=== PATIENT | female | born 1960 | race Caucasian/White ===

== ENCOUNTER → 2016-11-09 | Outpatient (REF) | payer OTHER | LOC: M LAB REF 13:04 | PROVIDERS: ATTEND Specialist | DX: R87.613 High grade squamous intraepithelial lesion on cytologic smear of cervix (HGSIL) (principal) ==

== ENCOUNTER → 2016-12-07 | Outpatient (CLI) | payer OTHER ==
[2016-12-07 07:03] LABS: BASO % 0.5 % (0.0-1.0); EOS # 0.2 K/mm3 (0.0-0.50); EOS % 2.5 % (0.0-3.0); LARGE UNSTAINED CELL # 0.2 K/mm3 (0.0-0.4); LARGE UNSTAINED CELL % 2.5 % (0.0-4.0); LYMPH # 2.7 K/mm3 (1.5-4.5); LYMPH % 24.7 % (24.0-44.0); MEAN CORPUSCULAR HEMOGLOBIN 30.5 pg (27.0-33.0); MEAN CORPUSCULAR HGB CONC 33.9 g/dl (32.0-36.5); MONO # 0.4 K/mm3 (0.0-0.8); NEUTROPHILS # 6.5 K/mm3 (1.8-7.7); NEUTROPHILS % 65.8 % (36.0-66.0); PLATELET COUNT, AUTOMATED 176 k/mm3 (150-450); RED CELL DISTRIBUTION WIDTH 12.6 % (11.5-14.5); WHITE BLOOD COUNT 9.9 K/mm3 (4.0-10.0)
[2016-12-07 07:24] LABS: ALBUMIN 3.8 GM/DL (3.2-5.2); ALBUMIN/GLOBULIN RATIO 1.27 (1.00-1.93); ALKALINE PHOSPHATASE 119 U/L (45-117); ALT/SGPT 22 U/L (12-78); ANION GAP 5 MEQ/L (8-16); AST/SGOT 11 U/L (15-37); BILIRUBIN,TOTAL 0.3 MG/DL (0.2-1.0); BLOOD UREA NITROGEN 15 MG/DL (7-18); CALCIUM LEVEL 8.7 MG/DL (8.5-10.1); CARBON DIOXIDE LEVEL 29 MEQ/L (21-32); CHLORIDE LEVEL 108 MEQ/L (98-107); CHOLESTEROL LEVEL 178 MG/DL (<200); CREATININE FOR GFR 0.82 MG/DL (0.55-1.02); GLOMERULAR FILTRATION RATE > 60.0 (>51); GLUCOSE, FASTING 85 MG/DL (70-105); POTASSIUM SERUM 4.3 MEQ/L (3.5-5.1); SODIUM LEVEL 142 MEQ/L (136-145); TOTAL PROTEIN 6.8 GM/DL (6.4-8.2); TRIGLYCERIDES LEVEL 134 MG/DL (<150)
== END ==
LOC: M LAB 06:17
PROVIDERS: ATTEND Family Medicine
DX: R74.8 Abnormal levels of other serum enzymes (principal); F17.200 Nicotine dependence, unspecified, uncomplicated; R05 Cough

== ENCOUNTER 2017-01-16 06:05 | Day surgery (SDC) | payer OTHER ==
[~2017-01-16] VITALS: Ht 160 cm; Wt 60.8 kg
[2017-01-16] VITALS (8 sets, daily range): BP systolic 105–140; BP diastolic 51–70
[~2017-01-16 06:05] MED LIST: ASPI1TAB PO; ATOR40TA75 PO; OMEP40CA2 PO; VENL37.52 PO; VITA1CAP7 PO
[2017-01-16] MEDS ORDERED: LR 1,000 ML IV SCH ×3 (06:15→10:00)
[2017-01-16 06:36] LABS: MEAN CORPUSCULAR HEMOGLOBIN 30.7 pg (27.0-33.0); MEAN CORPUSCULAR HGB CONC 34.5 g/dl (32.0-36.5); MEAN CORPUSCULAR VOLUME 88.9 fl (80.0-96.0); RED CELL DISTRIBUTION WIDTH 13.1 % (11.5-14.5); WHITE BLOOD COUNT 7.9 K/mm3 (4.0-10.0)
[2017-01-16] MEDS ORDERED: fentaNYL 250 MCG/5 ML INJECTION (J3010) As Ordered ONE (06:46)
[2017-01-16] MEDS ORDERED: MIDAZOLAM INJ 2 MG/2 ML VIAL (J2250) As Ordered ONE (06:46)
[2017-01-16] MEDS ORDERED: HYDROmorphone HCL 2 MG/ML 1ML VIAL (J1170) As Ordered ONE (06:46)
[2017-01-16] MEDS ORDERED: LIDOCAINE 2% INJ 100 MG/5 ML SDV (FOR ANES.) As Ordered ONE (06:47)
[2017-01-16] MEDS ORDERED: ROCURONIUM BROMIDE 50 MG/5 ML VIAL/SYRINGE As Ordered ONE ×2 (06:47→08:45)
[2017-01-16] MEDS ORDERED: PROPOFOL 200 MG/20 ML VIAL As Ordered ONE ×2 (06:47→08:08)
[2017-01-16] MEDS ORDERED: dexameTHASONE 4 MG/ML 1ML VIAL (J1100) As Ordered ONE (06:47)
[2017-01-16] MEDS ORDERED: GLYCOPYRROLATE INJ 0.2 MG/ML 2 ML VIAL As Ordered ONE (06:59)
[2017-01-16] MEDS ORDERED: LR 1,000 ML IV ONE (07:00)
[2017-01-16] MEDS ORDERED: SCOPOLAMINE 1.5 MG TRANSDERMAL As Ordered ONE (07:12)
[2017-01-16] MEDS ORDERED: BUPIVACAINE HCL 0.25% 30 ML VIAL As Ordered ONE (07:14)
[2017-01-16] MEDS ORDERED: SCOPOLAMINE 1.5 MG TRANSDERMAL TOP ONE (07:15)
[2017-01-16] MEDS ORDERED: METHYLENE BLUE 0.5% (5MG/ML) 10 ML AMP (PROVAYBLUE)(Q9968 PER 1MG) As Ordered ONE (07:15)
[2017-01-16] MEDS ORDERED: ceFAZolin SOD 1 GM in D5W MINI-BAG PLUS 50 ML IV ONE (07:30)
[2017-01-16] MEDS ORDERED: ONDANSETRON 4MG/2ML VIAL (J2405) As Ordered ONE (08:13)
[2017-01-16] MEDS ORDERED: KETOROLAC 60 MG/2 ML VIAL (J1885) As Ordered ONE (08:13)
[2017-01-16] MEDS ORDERED: DOCUSATE SODIUM 100 MG CAP PO SCH (09:00)
[2017-01-16] MEDS ORDERED: HYDROmorphone HCL 1 MG/ML SYRINGE (J1170) IV PRN (10:00)
[2017-01-16] MEDS ORDERED: KETOROLAC 30 MG/ML VIAL (J1885) IV PRN (10:00)
[2017-01-16] MEDS ORDERED: MORPHINE 4 MG/ML 1ML SYRINGE IV PRN (10:00)
[2017-01-16] MEDS ORDERED: fentaNYL 100 MCG/2 ML INJECTION (J3010) IV PRN (10:00)
[2017-01-16] MEDS ORDERED: ONDANSETRON 4MG/2ML VIAL (J2405) IV PRN ×2 (10:00)
[2017-01-16] MEDS ORDERED: PERCOCET 5MG/325MG TAB PO PRN ×3 (10:00)
[2017-01-16] MEDS ORDERED: PERC5TAB12 PO (10:56)
--- NOTE | 2017-01-17 07:49 | RO ---
DATE OF PROCEDURE: 01/16/2017 PREPROCEDURE DIAGNOSIS: High grade cervical dysplasia. POSTPROCEDURE DIAGNOSIS: High grade cervical dysplasia. PROCEDURE: Robotic-assisted laparoscopic hysterectomy and bilateral salpingo-oophorectomy, cystoscopy. SURGEON: Dr. Demar Santana. CORRUGATED FASTENER DRIVER: ANESTHESIA: General endotracheal. ESTIMATED BLOOD LOSS: 50 mL. FINDINGS: Small uterus. Normal fallopian tubes and ovaries. Normal upper abdomen including liver, gallbladder, stomach. OPERATIVE SUMMARY: The patient was taken to the operating room where general endotracheal anesthesia was induced. She was prepped and draped in a sterile fashion in dorsal lithotomy position. Ackerman catheter was placed. A [employer] uterine manipulator was placed. Periumbilical incision was made with a scalpel. Veress needle was placed through this incision while tenting up on the skin of the abdomen. Intra-abdominal creation of the Veress needle was assessed with the use of a saline filled syringe. Pneumoperitoneum was created. The Veress needle was removed. An 11 mm trocar was placed directly through this incision while tenting up on the skin of the abdomen using Visiport. Three 8 mm suprapubic ports were placed under direct visualization without difficulty. Patient was placed in Trendelenburg position. The [employer] surgical robot was docked to the ports. Using Monopolar Endoshears and a bipolar PK device, the IP ligaments were coagulated and incised. Broad ligament attachments to the ovary were coagulated and incised. The round ligaments were coagulated and incised. The anterior and posterior leaves of the broad ligament were . A bladder flap was created. The uterine vessels were coagulated and incised. Monopolar Endoshears were used to create a pulpotomy in the upper vagina at the level of the VCare cup. This extended 360 degrees around the upper vagina. Specimen containing uterus, cervix, fallopian tubes and ovaries was removed through the vagina. The vaginal cuff was closed with #1 V-Loc suture in a running fashion. The pelvis was irrigated. The patient received Methylene Blue dye intravenously. Cystoscopy was performed using a 70 degree cystoscope. Bilateral ureteral jets were identified and there was no evidence of injury to the bladder. Sil Galvan NP, assisted with all aspects of the procedure from beginning to end. She positioned the patient initially, helped with incision of the ports and docking of the robot. She manipulated the uterus throughout the procedure and removed the uterus at the end of the procedure. She assisted with removal of the ports and closure of the abdominal incisions. All ports were removed. The fascia of umbilicus was closed with interrupted suture of #2-0 Vicryl. Skin was closed with #4-0 Monocryl subcutaneous sutures. Sponge, instrument and needle counts were correct.
== END 2017-01-16 17:25 | disposition home or self-care (01) ==
LOC: M SDC 06:05 → M PED 11:07 → M SDC 17:25
PROVIDERS: ATTEND Specialist
DX: D06.9 Carcinoma in situ of cervix, unspecified (principal); E78.00 Pure hypercholesterolemia, unspecified; E55.9 Vitamin D deficiency, unspecified; R94.31 Abnormal electrocardiogram [ECG] [EKG]; K21.9 Gastro-esophageal reflux disease without esophagitis; N72 Inflammatory disease of cervix uteri; D25.9 Leiomyoma of uterus, unspecified; Z79.899 Other long term (current) drug therapy; Z79.82 Long term (current) use of aspirin; Z78.0 Asymptomatic menopausal state; Z72.0 Tobacco use
CPT/HCPCS: 36415; 58571; 85027; 88307; J0690; J1100; J1170; J1885; J2250; J2405; J3010; Q9968

== ENCOUNTER → 2018-02-19 | Outpatient (CLI) | payer OTHER | LOC: M RAD 12:25 | DX: R91.8 Other nonspecific abnormal finding of lung field (principal) | CPT/HCPCS: 71250 ==

== ENCOUNTER → 2018-03-05 | Outpatient (CLI) | payer OTHER | LOC: M RAD 13:18 | DX: I65.23 Occlusion and stenosis of bilateral carotid arteries (principal) | CPT/HCPCS: 93880 ==

== ENCOUNTER → 2018-07-16 | Outpatient (REF) | payer OTHER ==
[~2018-07-16] MED LIST changes: +PERC5TAB12 PO
[2018-07-16 14:24] LABS: BLOOD UREA NITROGEN 18 MG/DL (7-18); CALCIUM LEVEL 8.7 MG/DL (8.8-10.2); CARBON DIOXIDE LEVEL 28 MEQ/L (21-32); CHLORIDE LEVEL 106 MEQ/L (98-107); CHOLESTEROL LEVEL 199 MG/DL (<200); CHOLESTEROL RISK RATIO 4.522 (<5); CREATININE FOR GFR 0.87 MG/DL (0.55-1.30); GLOMERULAR FILTRATION RATE > 60.0 (>45); GLUCOSE, FASTING 91 MG/DL (70-100); HDL CHOLESTEROL 44 MG/DL (>40); LDL CHOLESTEROL 125 MG/DL (<100); NON-HDL-C 155 MG/DL; POTASSIUM SERUM 4.6 MEQ/L (3.5-5.1); SODIUM LEVEL 138 MEQ/L (136-145); TRIGLYCERIDES LEVEL 152 MG/DL (<150)
[2018-07-16 14:29] LABS: BASO # 0.1 10^3/uL (0.0-0.2); BASO % 0.6 % (0.0-1.0); EOS # 0.1 10^3/uL (0.0-0.50); EOS % 1.7 % (0.0-3.0); HEMATOCRIT 41.4 % (36.0-47.0); HEMOGLOBIN 13.8 g/dl (12.0-15.5); LYMPH # 2.9 10^3/uL (1.5-4.5); LYMPH % 36.9 % (24.0-44.0); MEAN CORPUSCULAR HGB CONC 33.3 g/dl (32.0-36.5); MONO # 0.5 10^3/uL (0.0-0.8); MONO % 6.4 % (0.0-5.0); NEUTROPHILS # 4.2 10^3/uL (1.8-7.7); NEUTROPHILS % 54.1 % (36.0-66.0); PLATELET COUNT, AUTOMATED 188 10^3/uL (150-450); WHITE BLOOD COUNT 7.8 10^3/uL (4.0-10.0)
[2018-07-16 14:51] LABS: HEMOGLOBIN A1c 5.5 %
== END ==
LOC: M SFHCPLAZ 11:28
PROVIDERS: ATTEND Family Medicine
DX: Z13.1 Encounter for screening for diabetes mellitus (principal); R91.1 Solitary pulmonary nodule; E78.2 Mixed hyperlipidemia

== ENCOUNTER → 2018-10-17 | Outpatient (CLI) | payer OTHER ==
[~2018-10-17] MED LIST changes: -ASPI1TAB PO; +ASPI81TA26 PO; +D-3-50003 PO; -VITA1CAP7 PO
--- NOTE | 2018-10-18 03:04 | REP ---
Clinical: Abnormal lung findings . Comparison: 05/14/2015 . Technique: PA and lateral. Findings: The mediastinum and cardiac silhouette are normal. The lung osorio are clear and without acute consolidation, effusion, or pneumothorax. The skeletal structures are intact and normal. Impression: 1. No acute cardiopulmonary process. Electronically Signed by Maurice Dimas MD 10/18/2018 02:55 A
== END ==
LOC: M RAD 11:32
PROVIDERS: ATTEND Internal Medicine Pulmonary Disease
DX: R91.8 Other nonspecific abnormal finding of lung field (principal)

== ENCOUNTER → 2019-03-05 | Outpatient (CLI) | payer OTHER ==
--- NOTE | 2019-03-05 11:29 | REP ---
Low-dose lung screening chest CT: The study is performed without IV contrast. The images are presented at lung windowing only per Comparisons are the low-dose lung screening CT dated 11/27/[address] without IV contrast dated 02/19/2018. There is a 6 ml lung nodule adjacent to the right major fissure on image 68, unchanged from both prior studies. There are calcified granulomas in the right hilus and calcified granulomas in the right lobe, unchanged from both prior studies per On the 02/19/2018 study there were two 2 mm lung nodules in the left upper lobe. These were not visible on 11/27/2017 and are not visible on the study today. There are no infiltrates. There are no pleural effusions. Impression: The 6 mm lung nodule adjacent to the right major fissure is unchanged, therefore, is a category II lung nodule with probability of malignancy less than 1%. Depending on risk factors consider annual follow-up low-dose lung screening CT. Electronically Signed by Bipin Chadwick MD 03/05/2019 11:21 A
== END ==
LOC: M RAD 10:24
PROVIDERS: ATTEND Internal Medicine Pulmonary Disease
DX: Z12.2 Encounter for screening for malignant neoplasm of respiratory organs (principal); F17.218 Nicotine dependence, cigarettes, with other nicotine-induced disorders; J84.10 Pulmonary fibrosis, unspecified; R91.1 Solitary pulmonary nodule

== ENCOUNTER → 2019-05-17 | Outpatient (REF) | payer OTHER ==
[~2019-05-17] MED LIST changes: -OMEP40CA2 PO; +OMEP40CA97 PO
[2019-05-17 12:08] LABS: ALBUMIN 4.1 GM/DL (3.2-5.2); ALT/SGPT 22 U/L (12-78); BILIRUBIN,TOTAL 0.4 MG/DL (0.2-1.0); BLOOD UREA NITROGEN 15 MG/DL (7-18); CARBON DIOXIDE LEVEL 29 MEQ/L (21-32); CHLORIDE LEVEL 105 MEQ/L (98-107); CHOLESTEROL LEVEL 248 MG/DL (<200); CREATININE FOR GFR 0.86 MG/DL (0.55-1.30); FREE T4 1.26 NG/DL (0.76-1.46); GLOMERULAR FILTRATION RATE > 60.0 (>45); GLUCOSE, FASTING 74 MG/DL (70-100); HDL CHOLESTEROL 40 MG/DL (>40); LDL CHOLESTEROL 174 MG/DL (<100); NON-HDL-C 208 MG/DL; POTASSIUM SERUM 4.4 MEQ/L (3.5-5.1); SODIUM LEVEL 140 MEQ/L (136-145); THYROID STIMULATING HORMONE 0.664 uIU/ML (0.358-3.740); TOTAL PROTEIN 7.1 GM/DL (6.4-8.2); TRIGLYCERIDES LEVEL 171 MG/DL (<150)
== END ==
LOC: M SFHCPLAZ 09:40
PROVIDERS: ATTEND Physician Assistant
DX: F17.200 Nicotine dependence, unspecified, uncomplicated (principal); E78.2 Mixed hyperlipidemia; Z90.09 Acquired absence of other part of head and neck

== ENCOUNTER → 2020-03-17 | Outpatient (CLI) | payer OTHER ==
--- NOTE | 2020-03-23 15:20 | REP ---
CT CHEST WITHOUT CONTRAST: LOW DOSE SCREENING EXAM HISTORY: Nicotine dependence. COMPARISON: Chest CT studies are reviewed, the most remote of which is from November 27, 2018. The most recent is 03/05/2019. CT FINDINGS: Digital preliminary locomotive boilermaker radiograph is unremarkable. There is no evidence of infiltrate or mass lesion. A granulomatous densely calcified nodule is present in the right lower lobe, unchanged from prior studies. There are granulomatous lymph node calcifications in the subcarinal and right hilar and right precarinal region unchanged. Vascular calcifications again noted. The previously noted perifissural nodule in the right lung adjacent to the major fissure in the middle lobe is again seen unchanged, 6 mm in size, stable for over two years. This is considered benign. There is a tiny 3 mm stable nodule in the right lung apex on page 15 of 99 in todays study. This is also unchanged since November 27, 2017. There is a tiny stable 2-3 mm nodule in the left lower lobe on page 59 unchanged from November 27, 2017, and February 19, 2018. No new pulmonary nodule or mass lesion is observed. Question bronchiectasis in the upper and lower lobes. Study is otherwise unremarkable. IMPRESSION: Lung-RADS category 2 findings. Repeat screening study suggested in one year. MTDD
== END ==
LOC: M RAD 09:35
PROVIDERS: ATTEND Internal Medicine Pulmonary Disease
DX: F17.218 Nicotine dependence, cigarettes, with other nicotine-induced disorders (principal); R91.1 Solitary pulmonary nodule

== ENCOUNTER → 2020-06-02 | Outpatient (REF) | payer OTHER ==
[2020-06-02 11:15] LABS: HEMATOCRIT 43.6 % (36.0-47.0); HEMOGLOBIN 14.3 g/dl (12.0-15.5); MEAN CORPUSCULAR HEMOGLOBIN 30.5 pg (27.0-33.0); MEAN CORPUSCULAR HGB CONC 32.8 g/dl (32.0-36.5); PLATELET COUNT, AUTOMATED 172 10^3/uL (150-450); RED BLOOD COUNT 4.69 10^6/uL (4.00-5.40); WHITE BLOOD COUNT 7.3 10^3/uL (4.0-10.0)
[2020-06-02 12:03] LABS: ALBUMIN 4.1 GM/DL (3.2-5.2); ALT/SGPT 25 U/L (12-78); BILIRUBIN,TOTAL 0.3 MG/DL (0.2-1.0); BLOOD UREA NITROGEN 19 MG/DL (7-18); CALCIUM LEVEL 8.6 MG/DL (8.8-10.2); CARBON DIOXIDE LEVEL 30 MEQ/L (21-32); CHLORIDE LEVEL 106 MEQ/L (98-107); CHOLESTEROL LEVEL 188 MG/DL (<200); CREATININE FOR GFR 0.92 MG/DL (0.55-1.30); GLOMERULAR FILTRATION RATE > 60.0 (>45); GLUCOSE, FASTING 83 MG/DL (70-100); HDL CHOLESTEROL 47 MG/DL (>40); LDL CHOLESTEROL 113 MG/DL (<100); NON-HDL-C 141 MG/DL; POTASSIUM SERUM 4.2 MEQ/L (3.5-5.1); SODIUM LEVEL 139 MEQ/L (136-145); TOTAL PROTEIN 7.4 GM/DL (6.4-8.2); TRIGLYCERIDES LEVEL 141 MG/DL (<150)
== END ==
LOC: M SFHCPLAZ 08:34
PROVIDERS: ATTEND Physician Assistant
DX: E78.2 Mixed hyperlipidemia (principal); F17.210 Nicotine dependence, cigarettes, uncomplicated

== ENCOUNTER → 2020-11-27 | Outpatient (CLI) | payer OTHER ==
[~2020-11-27] MED LIST changes: +OMEP40CA4 PO; -OMEP40CA97 PO
--- NOTE | 2020-11-27 11:50 | REP ---
INDICATION: DYSPHAGIA, DYSPHONIA, DIS OF UPPER RESPIRATORY TRA. COMPARISON: None. TECHNIQUE: Real-time sonographic evaluation of thyroid performed. FINDINGS: Reportedly the patient has had a left thyroidectomy approximately 27 years ago. No residual thyroid tissue is seen to the left of midline. The right lobe of the thyroid measures 5.9 x 3.1 x 2.0 cm with diffuse heterogeneous echotexture. In the mid right lobe there is a heterogeneous solid nodule 7 mm in diameter and another 8 mm in maximum diameter. In the right lower pole medially a complex nodule contains tiny cystic components and measures 4 x 2 x 5 mm. More laterally, a heterogeneous solid nodule measures 1.1 x 0.7 x 0.9 cm. IMPRESSION: Heterogeneous echotexture of the right lobe of the thyroid, with 4 nodules identified. According to TI-RADS criteria, these are not suspicious. No residual left thyroid tissue is visualized status post thyroidectomy. <Electronically signed by Bipin Angeles > 11/27/20 [id number]
== END ==
LOC: M RAD 07:29
PROVIDERS: ATTEND Internal Medicine Gastroenterology
DX: R13.10 Dysphagia, unspecified (principal); R49.0 Dysphonia; J39.9 Disease of upper respiratory tract, unspecified; E04.2 Nontoxic multinodular goiter

== ENCOUNTER → 2021-04-08 | Outpatient (CLI) | payer OTHER ==
[~2021-04-08] MED LIST changes: +D3 S20002 PO; +NO ITAB PO; +VENL75TA2 PO; +VITA500030 PO
--- NOTE | 2021-04-08 10:00 | REP ---
INDICATION: NICOTINE DEPENDENCE. COMPARISON: Multiple the latest 03/17/2020 also low-dose screening CT of the lungs TECHNIQUE: Axial noncontrast images from the thoracic inlet to the upper abdomen using low-dose lung screening technique (LDCT). As per the protocol only lung window images were sent to the read station for interpretation. FINDINGS: There are 2 right lung nodules and 1 left lung nodule and they are all stable. Note is again made of an incidental calcified granuloma in the right lower lobe. No new abnormal nodules, masses, or opacities have developed. IMPRESSION: Stable lung rads category 2 low-dose screening CT examination of the lungs. According to the revised Fleischner society criteria yearly low-dose screening CT of the lungs is recommended if clinically relevant. <Electronically signed by Mao Jin > 04/08/21 0997
== END ==
LOC: M RAD 08:15
PROVIDERS: ATTEND Internal Medicine Pulmonary Disease
DX: F17.218 Nicotine dependence, cigarettes, with other nicotine-induced disorders (principal); R91.8 Other nonspecific abnormal finding of lung field

== ENCOUNTER → 2021-04-19 | Outpatient (CLI) | payer OTHER | LOC: M LABSMTC 10:15 | PROVIDERS: ATTEND Anesthesiology | DX: Z01.812 Encounter for preprocedural laboratory examination (principal); Z20.822 Contact with and (suspected) exposure to COVID-19 ==

== ENCOUNTER 2021-04-23 12:11 | Day surgery (SDC) | payer OTHER ==
[~2021-04-23] VITALS: Ht 162.6 cm; Wt 63.5 kg
[~2021-04-23 12:11] MED LIST changes: +NS 1,000 ML IV ONE
--- OUTSIDE RECORDS SUMMARY | 2021-04-23 12:14 | CCD | Continuity of Care Document ---
Author Author Clara COLLADO MD Organization Unknown Address [address] [place] [address] Phone [phone] Care Team Providers Care Collector Of Aquarium Specimens Name Role Phone Noah Leanne Cristofer Gusman AUTM [phone] Problems Description No Information Available Social History Type Date Description Comments Sex Unknown ETOH Use Consumes 1 glass of wine per day Recreational Drug Use Denies Drug Use Tobacco Use Start: 06/12/74 Smokes 1/2 Pack A Day 1/2 pack p er day Smoking Status Reviewed: 04/14/21 Smokes 1/2 Pack A Day 1/2 pac k per day Exercise Type/Frequency Exercises regularly Allergies and adverse reactions Active Allergies Criticality Reaction | Severity Comments Date Penicillin Unable to assess criticality Anaphylaxis 10/23/2014 Inactive Allergies NKDA Unable to assess criticality 02/26/2014 Medications Active Medications SIG Qnty Indications Ordering Provide r Date Vitamin D 5000Unit Capsules once a day Unknown Atorvastatin Calcium 40mg Tablets 1 by mouth every night at bedtime Unknown Venlafaxine HCL ER 75mg Caps ER 24 HR 1 by mouth every day Unknown Immunizations Description No Information Available Vital Signs Date Vital Result Comment 04/14/2021 11:16am BP Systolic 128 mmHg BP Diastolic 76 mmHg Heart Rate 68 /min O2 % BldC Oximetry 97 % Height 64 inches 5'4" Weight 146.00 lb BMI (Body Mass Index) 25.1 kg/m2 [place] Body Weight 120 lb Weight 66.226 kg BSA (Body Surface Area) 1.71 m2 03/30/2020 9:21am BP Systolic 130 mmHg BP Diastolic 82 mmHg Heart Rate 102 /min O2 % BldC Oximetry 98 % Room Air Height 64 inches 5'4" Weight 143.00 lb BMI (Body Mass Index) 24.5 kg/m2 [place] Body Weight 120 lb Weight 64.865 kg BSA (Body Surface Area) 1.70 m2 Results Description No Information Available Procedures Description No Information Available Medical Devices Description No Information Available Encounters Description No Information Available Assessments Date Code Description Provider 04/14/2021 R91.8 Other nonspecific abnormal findi ng of lung field Waldo Collado MD 04/14/2021 F17.218 Nicotine dependence, cigarettes, with other nicotine-induced Waldo Collado MD Plan of Treatment Future Appointment(s):* 04/21/2022 8:30 am - Waldo Collado MD at [facility] Pulmonary/Thoracic 04/14/2021 - Waldo Collado MD* R91.8 Other nonspecific abnormal finding of lung field * F17.218 Nicotine dependence, cigarettes, with other nicotine-induced * * Follow up:* 12 months with LDCT Functional Status Description No Information Available Mental Status Mental Condition Comment Date Status None Active Can understand information Activ e Referrals Description No Information Available
--- OUTSIDE RECORDS SUMMARY | 2021-04-23 12:14 | CCD | Continuity of Care Document ---
Author Author Clara COLLADO MD Organization Unknown Address [address] [place] [address] Phone [phone] Care Team Providers Care Partner Marketing Manager Name Role Phone Noah Leanne Cristofer Gusman AUTM [phone] Problems Description No Information Available Social History [...] lb BMI (Body Mass Index) 25.1 kg/m2 [place] Body Weight 120 lb Weight 66.226 kg BSA (Body Surface Area) 1.71 m2 03/30/2020 9:21am BP Systolic 130 mmHg BP Diastolic 82 mmHg Heart Rate 102 /min O2 % BldC Oximetry 98 % Room Air Height 64 inches 5'4" Weight 143.00 lb BMI (Body Mass Index) 24.5 kg/m2 [place] Body Weight 120 lb Weight 64.865 kg [...] 8:30 am - Waldo Collado MD at [facility] Pulmonary/Thoracic 04/14/2021 - Waldo Collado MD* R91.8 Other nonspecific abnormal finding of lung field * F17.218 Nicotine dependence, cigarettes, with other nicotine-induced * * Follow up:* 12 months with LDCT Functional Status Description No Information Available Mental Status Mental Condition Comment Date Status None Active Can understand information Activ e Referrals Description No Information Available
--- OUTSIDE RECORDS SUMMARY | 2021-04-23 12:14 | CCD | Continuity of Care Document ---
Author Author Clara COLLADO MD Organization Unknown Address [address] [place] [address] Phone [phone] Care Team Providers Care Mat Weaver Name Role Phone Noah Leanne Cristofer Gusman AUTM [phone] Problems Description No Information Available Social History [...] lb BMI (Body Mass Index) 25.1 kg/m2 [place] Body Weight 120 lb Weight 66.226 kg BSA (Body Surface Area) 1.71 m2 03/30/2020 9:21am BP Systolic 130 mmHg BP Diastolic 82 mmHg Heart Rate 102 /min O2 % BldC Oximetry 98 % Room Air Height 64 inches 5'4" Weight 143.00 lb BMI (Body Mass Index) 24.5 kg/m2 [place] Body Weight 120 lb Weight 64.865 kg [...] 8:30 am - Waldo Collado MD at [facility] Pulmonary/Thoracic 04/14/2021 - Waldo Collado MD* R91.8 Other nonspecific abnormal finding of lung field * F17.218 Nicotine dependence, cigarettes, with other nicotine-induced * * Follow up:* 12 months with LDCT Functional Status Description No Information Available Mental Status Mental Condition Comment Date Status None Active Can understand information Activ e Referrals Description No Information Available
--- OUTSIDE RECORDS SUMMARY | 2021-04-23 12:14 | CCD | Continuity of Care Document ---
Author Author Clara COLLADO MD Organization Unknown Address [address] [place] [address] Phone [phone] Care Team Providers Care Fire Extinguisher Sprinkler Inspector Name Role Phone Noah Leanne Cristofer Gusman AUTM [phone] Problems Description No Information Available Social History [...] lb BMI (Body Mass Index) 25.1 kg/m2 [place] Body Weight 120 lb Weight 66.226 kg BSA (Body Surface Area) 1.71 m2 03/30/2020 9:21am BP Systolic 130 mmHg BP Diastolic 82 mmHg Heart Rate 102 /min O2 % BldC Oximetry 98 % Room Air Height 64 inches 5'4" Weight 143.00 lb BMI (Body Mass Index) 24.5 kg/m2 [place] Body Weight 120 lb Weight 64.865 kg [...] 8:30 am - Waldo Collado MD at [facility] Pulmonary/Thoracic 04/14/2021 - Waldo Collado MD* R91.8 Other nonspecific abnormal finding of lung field * F17.218 Nicotine dependence, cigarettes, with other nicotine-induced * * Follow up:* 12 months with LDCT Functional Status Description No Information Available Mental Status Mental Condition Comment Date Status None Active Can understand information Activ e Referrals Description No Information Available
--- OUTSIDE RECORDS SUMMARY | 2021-04-23 12:14 | CCD | Continuity of Care Document ---
Author Author Clara COLLADO MD Organization Unknown Address [address] [place] [address] Phone [phone] Care Team Providers Care Raw Stock Drier Tender Name Role Phone Noah Leanne Cristofer Gusman AUTM [phone] Problems Description No Information Available Social History [...] lb BMI (Body Mass Index) 25.1 kg/m2 [place] Body Weight 120 lb Weight 66.226 kg BSA (Body Surface Area) 1.71 m2 03/30/2020 9:21am BP Systolic 130 mmHg BP Diastolic 82 mmHg Heart Rate 102 /min O2 % BldC Oximetry 98 % Room Air Height 64 inches 5'4" Weight 143.00 lb BMI (Body Mass Index) 24.5 kg/m2 [place] Body Weight 120 lb Weight 64.865 kg [...] 8:30 am - Waldo Collado MD at [facility] Pulmonary/Thoracic 04/14/2021 - Waldo Collado MD* R91.8 Other nonspecific abnormal finding of lung field * F17.218 Nicotine dependence, cigarettes, with other nicotine-induced * * Follow up:* 12 months with LDCT Functional Status Description No Information Available Mental Status Mental Condition Comment Date Status None Active Can understand information Activ e Referrals Description No Information Available
--- OUTSIDE RECORDS SUMMARY | 2021-04-23 12:14 | CCD | Continuity of Care Document ---
Author Author Clara COLLADO MD Organization Unknown Address [address] [place] [address] Phone [phone] Care Team Providers Care Reinstatement Clerk Name Role Phone Noah Leanne Cristofer Gusman AUTM [phone] Problems Description No Information Available Social History [...] lb BMI (Body Mass Index) 25.1 kg/m2 [place] Body Weight 120 lb Weight 66.226 kg BSA (Body Surface Area) 1.71 m2 03/30/2020 9:21am BP Systolic 130 mmHg BP Diastolic 82 mmHg Heart Rate 102 /min O2 % BldC Oximetry 98 % Room Air Height 64 inches 5'4" Weight 143.00 lb BMI (Body Mass Index) 24.5 kg/m2 [place] Body Weight 120 lb Weight 64.865 kg BSA (Body Surface Area) 1.70 m2 Results Description No Information Available Procedures Date Code Description Status 04/14/2021 51657 Office/Outpatient Established Lo w MDM 20-29 Min Completed Medical Devices Description No Information Available Encounters Type Date Location Provider Dx Diagnosis Office Visit 04/14/2021 11:30a [facility] Pulmonary/Thoracic Lawrenc kelley Collado MD R91.8 Other nonspecific abnormal finding of dante ng field F17.218 Nicotine dependence, cigaret rober, w oth disorders Assessments Date Code Description Provider 04/14/2021 R91.8 Other nonspecific abnormal findi ng of lung field Waldo Collado MD 04/14/2021 F17.218 Nicotine dependence, cigarettes, with other nicotine-induced Waldo Collado MD Plan of Treatment Future Appointment(s):* 04/21/2022 8:30 am - Waldo Collado MD at [facility] Pulmonary/Thoracic 04/14/2021 - Waldo Collado MD* R91.8 Other nonspecific abnormal finding of lung field * F17.218 Nicotine dependence, cigarettes, with other nicotine-induced * * Comments:* ~ At this point, we again discussed smoking cessation, but I am not at all optimistic.~ She should have a low-dose CT scan in a year, and I will make those arrangements, and see her in return at that time. ~ If she gets a new primary care provider, she will let us know. * Follow up:* 12 months with LDCT Functional Status Description No Information Available Mental Status Mental Condition Comment Date Status None Active Can understand information Activ e Referrals Description No Information Available
--- OUTSIDE RECORDS SUMMARY | 2021-04-23 12:15 | CCD ---
Author Author [facility] Organization [facility] Address Unknown Phone Unavailable Care Team Providers Care Salesperson [employer] Name Role Phone Manuelito Collado MD Unavailable Unavailable Manuelito Collado MD Unavailable Unavailable Manuelito Collado MD Unavailable Unavailable Manuelito Collado MD Unavailable Unavailable Manuelito Collado MD Unavailable Unavailable Manuelito Collado MD Unavailable Unavailable Manuelito Collado MD Unavailable Unavailable Manuelito Collado MD Unavailable Unavailable Manuelito Collado MD Unavailable Unavailable Manuelito Collado MD Unavailable Unavailable Manuelito Collado MD Unavailable Unavailable Manuelito Collado MD Unavailable Unavailable Manuelito Collado MD Unavailable Unavailable Manuelito Collado MD Unavailable Unavailable Manuelito Collado MD Unavailable Unavailable Manuelito Collado MD Unavailable Unavailable Manuelito Collado MD Unavailable Unavailable Manuelito Collado MD Unavailable Unavailable Manuelito Collado MD Unavailable Unavailable Manuelito Collado MD Unavailable Unavailable Manuelito Collado MD Unavailable Unavailable Manuelito Collado MD Unavailable Unavailable Manuelito Collado MD Unavailable Unavailable Manuelito Collado MD Unavailable Unavailable Manuelito Collado MD Unavailable Unavailable Manuelito Collado MD Unavailable Unavailable Manuelito Collado MD Unavailable Unavailable Manuelito Collado MD Unavailable Unavailable Manuelito Collado MD Unavailable Unavailable Manuelito Collado MD Unavailable Unavailable Manuelito Collado MD Unavailable Unavailable Manuelito Collado MD Unavailable Unavailable Manuelito Collado MD Unavailable Unavailable Manuelito Collado MD Unavailable Unavailable Manuelito Collado MD Unavailable Unavailable Manuelito Collado MD Unavailable Unavailable Collado, Manuelito Haas MD Unavailable Unavailable Collado, Manuelito Haas MD Unavailable Unavailable Collado, Manuelito Haas MD Unavailable Unavailable Collado, Manuelito Haas MD Unavailable Unavailable Collado, Manuelito Haas MD Unavailable Unavailable Collado, Manuelito Haas MD Unavailable Unavailable Collado, Manuelito Haas MD Unavailable Unavailable Collado, Manuelito Waldo MD Unavailable Unavailable Collado, Manuelito Waldo MD Unavailable Unavailable Collado, Manuelito Waldo MD Unavailable Unavailable Collado, Manuelito Waldo MD Unavailable Unavailable Collado, Manuelito Haas MD Unavailable Unavailable Collado, Manuelito Haas MD Unavailable Unavailable Collado, Manuelito Haas MD Unavailable Unavailable Collado, Manuelito Haas MD Unavailable Unavailable Collado, Manuelito Haas MD Unavailable Unavailable Collado, Manuelito Haas MD Unavailable Unavailable Collado, Manuelito Haas MD Unavailable Unavailable Re-disclosure Warning The records that you are about to access may contain information from federally-assisted alcohol or drug abuse programs. If such information is present, then the following federally mandated warning applies: This information has been disclosed to you from records protected by federal confidentiality rules (42 CFR part 2). The federal rules prohibit you from making any further disclosure of this information unless further disclosure is expressly permitted by the written consent of the person to whom it pertains or as otherwise permitted by 42 CFR part 2. A general authorization for the release of medical or other information is NOT sufficient for this purpose. The Federal rules restrict any use of the information to criminally investigate or prosecute any alcohol or drug abuse patient.The records that you are about to access may contain highly sensitive health information, the redisclosure of which is protected by Article 27-F of the [facility] Public Health law. If you continue you may have access to information: Regarding HIV / AIDS; Provided by facilities licensed or operated by the [facility] Office of Mental Health; or Provided by the [facility] Office for People With Developmental Disabilities. If such information is present, then the following [facility] mandated warning applies: This information has been disclosed to you from confidential records which are protected by state law. State law prohibits you from making any further disclosure of this information without the specific written consent of the person to whom it pertains, or as otherwise permitted by law. Any unauthorized further disclosure in violation of state law may result in a fine or half-way sentence or both. A general authorization for the release of medical or other information is NOT sufficient authorization for further disc losure. Family History Family Member Name Family Member Gender Family Member Status Date o f Status Description Data Source(s) Unknown Unknown Problem MEDENT ([facility], ) Unknown Female Problem [facility] ([facility]) Encounters Encounter Providers Location Date Indications Data Source(s ) Outpatient Attender: Waldo Vivar/Tahmina/Mk cheney 04/14/2021 11:30:00 AM EDT MEDENT ([facility]) [place] [address] [address] 11/19/2020 12:00:00 AM EDT eCW1 ([facility]) [place] [address] [address] 10/26/2020 12:00:00 AM EDT eCW1 ([facility]) Out[place] [address] [address] 06/02/2020 12:00:00 AM EST eCW1 ([facility]) Immunizations Vaccine Date Status Description Data Source(s) COVID-19 VACCINE Pfizer 09/09/2020 12:00:00 AM EDT completed [facility] Vaccine Series Complete: YESThis Data wa s Submitted to [facility] Via [employer]. COVID-19 VACCINE Pfizer 08/19/2020 12:00:00 AM EST completed [facility] Vaccine Series Complete: NOThis Data was Submitted to [facility] Via [employer]. influenza, recombinant, quadrIvalent,injectable, prese rvative free 06/02/2020 07:48:00 AM EST completed eCW1 ([facility]) influenza, recombinant, quadrIvalent,injectable, prese rvative free 06/02/2020 07:48:00 AM EST completed eCW1 ([facility]) influenza, recombinant, quadrIvalent,injectable, prese rvative free 06/02/2020 07:48:00 AM EST completed eCW1 ([facility]) INFLUENZA VIRUS VACCINE QUADRIVALENT (6 MOS AN D UP) 05/05/2020 12:00:00 AM EST completed [facility] Medications Medication Brand Name Start Date Product Form Dose Route Admi nistrative Instructions Pharmacy Instructions Status Indications Reaction Description Data Source(s) 250 mg 02/03/2021 12:00:00 AM EDT tablet 6 TAKE TWO TABLETS BY MOUTH AT ONCE ON THE FIRST DAY THEN TAKE ONE DAILY THEREAFTER TAKE TWO TABLETS BY MOUTH AT ONCE ON THE FIRST DAY THEN TAKE ONE DAILY THEREAFTER SOLD: 02/03/2021 [facility] 40 mg 01/09/2021 12:00:00 AM EDT capsule,delayed release (DR/EC) 30 TAKE ONE CAPSULE BY MOUTH EVERY DAY TAKE ONE CAPSULE BY MOUTH EVERY DAY SOLD: 03/28/2021 [facility] 40 mg 01/09/2021 12:00:00 AM EDT capsule,delayed release (DR/EC) 30 TAKE ONE CAPSULE BY MOUTH EVERY DAY TAKE ONE CAPSULE BY MOUTH EVERY DAY SOLD: 02/25/2021 [facility] 40 mg 01/09/2021 12:00:00 AM EDT capsule,delayed release (DR/EC) 30 TAKE ONE CAPSULE BY MOUTH EVERY DAY TAKE ONE CAPSULE BY MOUTH EVERY DAY SOLD: 01/21/2021 [facility] atorvastatin 40 MG Oral Tablet ATORVASTATIN CALCIUM 12/18/2020 1 2:00:00 AM EDT tablet 30 TAKE 1 TABLET BY MOUTH 2-3 TIMES WEEKLY TAKE 1 TABLET BY MOUTH 2-3 TIMES WEEKLY SOLD: 03/28/2021 [facility] atorvastatin 40 MG Oral Tablet ATORVASTATIN CALCIUM 12/18/2020 1 2:00:00 AM EDT tablet 13 TAKE 1 TABLET BY MOUTH 2-3 TIMES WEEKLY TAKE 1 TABLET BY MOUTH 2-3 TIMES WEEKLY SOLD: 01/21/2021 [facility] atorvastatin 40 MG Oral Tablet ATORVASTATIN CALCIUM 12/18/2020 1 2:00:00 AM EDT tablet 12 TAKE 1 TABLET BY MOUTH 2-3 TIMES WEEKLY TAKE 1 TABLET BY MOUTH 2-3 TIMES WEEKLY SOLD: 12/22/2020 [facility] atorvastatin 40 MG Oral Tablet ATORVASTATIN CALCIUM 12/18/2020 1 2:00:00 AM EDT tablet 30 TAKE 1 TABLET BY MOUTH 2-3 TIMES WEEKLY TAKE 1 TABLET BY MOUTH 2-3 TIMES WEEKLY SOLD: 02/26/2021 [facility] 40 mg 12/18/2020 12:00:00 AM EDT capsule,delayed release (DR/EC) 30 TAKE ONE CAPSULE BY MOUTH EVERY DAY TAKE ONE CAPSULE BY MOUTH EVERY DAY SOLD: 12/22/2020 [facility] 37.5 mg 11/20/2020 12:00:00 AM EDT capsule,extended releas e 24hr 30 TAKE ONE CAPSULE BY MOUTH EVERY DAY TAKE ONE CAPSULE BY MOUTH EVERY DAY SOLD: 01/21/2021 [facility] 37.5 mg 11/20/2020 12:00:00 AM EDT capsule,extended releas e 24hr 30 TAKE ONE CAPSULE BY MOUTH EVERY DAY TAKE ONE CAPSULE BY MOUTH EVERY DAY SOLD: 03/29/2021 [facility] 37.5 mg 11/20/2020 12:00:00 AM EDT capsule,extended releas e 24hr 30 TAKE ONE CAPSULE BY MOUTH EVERY DAY TAKE ONE CAPSULE BY MOUTH EVERY DAY SOLD: 12/22/2020 [facility] 37.5 mg 11/20/2020 12:00:00 AM EDT capsule,extended releas e 24hr 30 TAKE ONE CAPSULE BY MOUTH EVERY DAY TAKE ONE CAPSULE BY MOUTH EVERY DAY SOLD: 11/20/2020 [facility] 37.5 mg 11/20/2020 12:00:00 AM EDT capsule,extended releas e 24hr 30 TAKE ONE CAPSULE BY MOUTH EVERY DAY TAKE ONE CAPSULE BY MOUTH EVERY DAY SOLD: 02/26/2021 [facility] 75 mg 10/26/2020 12:00:00 AM EDT capsule,extended releas e 24hr 30 TAKE ONE CAPSULE BY MOUTH EVERY DAY WITH FOOD TAKE ONE CAPSULE BY MOUTH EVERY DAY WITH FOOD SOLD: 03/28/2021 [facility] 75 mg 10/26/2020 12:00:00 AM EDT capsule,extended releas e 24hr 30 TAKE ONE CAPSULE BY MOUTH EVERY DAY WITH FOOD TAKE ONE CAPSULE BY MOUTH EVERY DAY WITH FOOD SOLD: 11/25/2020 [facility] 75 mg 10/26/2020 12:00:00 AM EDT capsule,extended releas e 24hr 30 TAKE ONE CAPSULE BY MOUTH EVERY DAY WITH FOOD TAKE ONE CAPSULE BY MOUTH EVERY DAY WITH FOOD SOLD: 10/26/2020 [facility] 75 mg 10/26/2020 12:00:00 AM EDT capsule,extended releas e 24hr 30 TAKE ONE CAPSULE BY MOUTH EVERY DAY WITH FOOD TAKE ONE CAPSULE BY MOUTH EVERY DAY WITH FOOD SOLD: 01/27/2021 [facility] 75 mg 10/26/2020 12:00:00 AM EDT capsule,extended releas e 24hr 30 TAKE ONE CAPSULE BY MOUTH EVERY DAY WITH FOOD TAKE ONE CAPSULE BY MOUTH EVERY DAY WITH FOOD SOLD: 02/26/2021 [facility] 75 mg 10/26/2020 12:00:00 AM EDT capsule,extended releas e 24hr 30 TAKE ONE CAPSULE BY MOUTH EVERY DAY WITH FOOD TAKE ONE CAPSULE BY MOUTH EVERY DAY WITH FOOD SOLD: 12/26/2020 [facility] atorvastatin 40 MG Oral Tablet ATORVASTATIN CALCIUM 06/18/2020 1 2:00:00 AM EST tablet 20 TAKE 1 TABLET BY MOUTH 2-3 TIMES WEEKLY TAKE 1 TABLET BY MOUTH 2-3 TIMES WEEKLY SOLD: 08/16/2020 [facility] atorvastatin 40 MG Oral Tablet ATORVASTATIN CALCIUM 06/18/2020 1 2:00:00 AM EST tablet 20 TAKE 1 TABLET BY MOUTH 2-3 TIMES WEEKLY TAKE 1 TABLET BY MOUTH 2-3 TIMES WEEKLY SOLD: 07/17/2020 [facility] atorvastatin 40 MG Oral Tablet ATORVASTATIN CALCIUM 06/18/2020 1 2:00:00 AM EST tablet 20 TAKE 1 TABLET BY MOUTH 2-3 TIMES WEEKLY TAKE 1 TABLET BY MOUTH 2-3 TIMES WEEKLY SOLD: 10/17/2020 [facility] 37.5 mg 06/18/2020 12:00:00 AM EST capsule,extended releas e 24hr 30 TAKE ONE CAPSULE BY MOUTH EVERY DAY TAKE ONE CAPSULE BY MOUTH EVERY DAY SOLD: 06/21/2020 [facility] 37.5 mg 06/18/2020 12:00:00 AM EST capsule,extended releas e 24hr 30 TAKE ONE CAPSULE BY MOUTH EVERY DAY TAKE ONE CAPSULE BY MOUTH EVERY DAY SOLD: 09/16/2020 [facility] atorvastatin 40 MG Oral Tablet ATORVASTATIN CALCIUM 06/18/2020 1 2:00:00 AM EST tablet 20 TAKE 1 TABLET BY MOUTH 2-3 TIMES WEEKLY TAKE 1 TABLET BY MOUTH 2-3 TIMES WEEKLY SOLD: 11/20/2020 [facility] 37.5 mg 06/18/2020 12:00:00 AM EST capsule,extended releas e 24hr 30 TAKE ONE CAPSULE BY MOUTH EVERY DAY TAKE ONE CAPSULE BY MOUTH EVERY DAY SOLD: 10/17/2020 [facility] atorvastatin 40 MG Oral Tablet ATORVASTATIN CALCIUM 06/18/2020 1 2:00:00 AM EST tablet 20 TAKE 1 TABLET BY MOUTH 2-3 TIMES WEEKLY TAKE 1 TABLET BY MOUTH 2-3 TIMES WEEKLY SOLD: 06/21/2020 [facility] 37.5 mg 06/18/2020 12:00:00 AM EST capsule,extended releas e 24hr 30 TAKE ONE CAPSULE BY MOUTH EVERY DAY TAKE ONE CAPSULE BY MOUTH EVERY DAY SOLD: 08/16/2020 [facility] 37.5 mg 06/18/2020 12:00:00 AM EST capsule,extended releas e 24hr 30 TAKE ONE CAPSULE BY MOUTH EVERY DAY TAKE ONE CAPSULE BY MOUTH EVERY DAY SOLD: 07/17/2020 [facility] 0.3-0.1 % 04/22/2020 12:00:00 AM EST drops,suspension 10 APPLY 1 DROP IN AFFECTED EYE THREE TIMES A DAY FOR 2 WEEKS APPLY 1 DROP IN AFFECTED EYE THREE TIMES A DAY FOR 2 WEEKS SOLD: 04/22/2020 [facility] 40 mg 04/14/2020 12:00:00 AM EST capsule,delayed release (DR/EC) 30 TAKE ONE CAPSULE BY MOUTH EVERY DAY TAKE ONE CAPSULE BY MOUTH EVERY DAY SOLD: 06/16/2020 [facility] 75 mg 04/14/2020 12:00:00 AM EST capsule,extended releas e 24hr 30 TAKE ONE CAPSULE BY MOUTH EVERY DAY WITH FOOD TAKE ONE CAPSULE BY MOUTH EVERY DAY WITH FOOD SOLD: 05/17/2020 [facility] 75 mg 04/14/2020 12:00:00 AM EST capsule,extended releas e 24hr 30 TAKE ONE CAPSULE BY MOUTH EVERY DAY WITH FOOD TAKE ONE CAPSULE BY MOUTH EVERY DAY WITH FOOD SOLD: 04/17/2020 [facility] 40 mg 04/14/2020 12:00:00 AM EST capsule,delayed release (DR/EC) 30 TAKE ONE CAPSULE BY MOUTH EVERY DAY TAKE ONE CAPSULE BY MOUTH EVERY DAY SOLD: 08/16/2020 [facility] 40 mg 04/14/2020 12:00:00 AM EST capsule,delayed release (DR/EC) 30 TAKE ONE CAPSULE BY MOUTH EVERY DAY TAKE ONE CAPSULE BY MOUTH EVERY DAY SOLD: 07/17/2020 [facility] 40 mg 04/14/2020 12:00:00 AM EST capsule,delayed release (DR/EC) 30 TAKE ONE CAPSULE BY MOUTH EVERY DAY TAKE ONE CAPSULE BY MOUTH EVERY DAY SOLD: 10/17/2020 [facility] 75 mg 04/14/2020 12:00:00 AM EST capsule,extended releas e 24hr 30 TAKE ONE CAPSULE BY MOUTH EVERY DAY WITH FOOD TAKE ONE CAPSULE BY MOUTH EVERY DAY WITH FOOD SOLD: 07/17/2020 [facility] 75 mg 04/14/2020 12:00:00 AM EST capsule,extended releas e 24hr 30 TAKE ONE CAPSULE BY MOUTH EVERY DAY WITH FOOD TAKE ONE CAPSULE BY MOUTH EVERY DAY WITH FOOD SOLD: 09/16/2020 [facility] 75 mg 04/14/2020 12:00:00 AM EST capsule,extended releas e 24hr 30 TAKE ONE CAPSULE BY MOUTH EVERY DAY WITH FOOD TAKE ONE CAPSULE BY MOUTH EVERY DAY WITH FOOD SOLD: 08/17/2020 [facility] 75 mg 04/14/2020 12:00:00 AM EST capsule,extended releas e 24hr 30 TAKE ONE CAPSULE BY MOUTH EVERY DAY WITH FOOD TAKE ONE CAPSULE BY MOUTH EVERY DAY WITH FOOD SOLD: 06/16/2020 [facility] 40 mg 04/14/2020 12:00:00 AM EST capsule,delayed release (DR/EC) 30 TAKE ONE CAPSULE BY MOUTH EVERY DAY TAKE ONE CAPSULE BY MOUTH EVERY DAY SOLD: 05/17/2020 [facility] 40 mg 04/14/2020 12:00:00 AM EST capsule,delayed release (DR/EC) 30 TAKE ONE CAPSULE BY MOUTH EVERY DAY TAKE ONE CAPSULE BY MOUTH EVERY DAY SOLD: 04/17/2020 [facility] 75 mg 11/11/2019 12:00:00 AM EDT capsule,extended releas e 24hr 30 TAKE ONE CAPSULE BY MOUTH EVERY DAY WITH FOOD TAKE ONE CAPSULE BY MOUTH EVERY DAY WITH FOOD SOLD: 03/17/2020 [facility] atorvastatin 40 MG Oral Tablet ATORVASTATIN CALCIUM 05/22/2019 1 2:00:00 AM EST tablet 20 TAKE 1 TABLET BY MOUTH 2-3 TIMES WEEKLY TAKE 1 TABLET BY MOUTH 2-3 TIMES WEEKLY SOLD: 04/17/2020 [facility] 37.5 mg 05/17/2019 12:00:00 AM EST capsule,extended releas e 24hr 30 TAKE ONE CAPSULE BY MOUTH EVERY DAY TAKE ONE CAPSULE BY MOUTH EVERY DAY SOLD: 03/14/2020 [facility] 37.5 mg 05/17/2019 12:00:00 AM EST capsule,extended releas e 24hr 30 TAKE ONE CAPSULE BY MOUTH EVERY DAY TAKE ONE CAPSULE BY MOUTH EVERY DAY SOLD: 04/17/2020 [facility] 37.5 mg 05/17/2019 12:00:00 AM EST capsule,extended releas e 24hr 30 TAKE ONE CAPSULE BY MOUTH EVERY DAY TAKE ONE CAPSULE BY MOUTH EVERY DAY SOLD: 05/17/2020 [facility] Insurance Providers Payer name Policy type / Coverage type Policy ID Covered republican ID Covered republican's relationship to santana Policy Santana Plan Information Excellus Ppo Silver Standard Medigap Part B [id number] Self MVP MCDO [id number] SP [id number] MVP [id number] Анна [id number] MVP Medicaid Health Maintenance Organization (HMO) [id number] 0 [id number] Self [id number] [facility] Health Maintenance Organization (HMO) [id number] Self [id number] ANSI-Not a Secondary Insurance [id number] ANSI-Not a Secondary Insurance [id number] [facility] Health Maintenance Organization (HMO) [id number] 0 [id number] Self [id number] [facility] Health Maintenance Organization (HMO) [id number] 0 [id number] Self [id number] [facility] Health Maintenance Organization (HMO) [id number] 0 [id number] Self [id number] [facility] Health Maintenance Organization (HMO) [id number] 0 [id number] Self [id number] [facility] Health Maintenance Organization (HMO) [id number] Self [id number] [facility] Health Maintenance Organization (HMO) [id number] 0 [id number] Self [id number] MVP MCDO [id number] SP [id number] [facility] MCDO [id number] SP [id number] [employer] [place] [employer] [id number] Self P Health Maintenance Organization (HMO) [id number] Self P - Medicaid Commercial [id number] Self [facility] PHY [id number] SP [id number] BCBS [place] PPO 302/307 [id number] SP [id number] SELF PAY UNAVAILABLE UNAVAILA BLE EXCELLUS BCBS P [id number] S [id number] [facility] [id number] SP [id number] [facility] MCDO [id number] SP [id number] [facility] [id number] SP [id number] [facility] O [id number] Problems, Conditions, and Diagnoses Code Display Name Description Problem Type Effective Dates Data Source(s) F17.210 99049406 Nicotine dependence, cigarettes, uncompli cated Problem 06/02/2020 12:00:00 AM EST [facility] Surgeries/Procedures Procedure Description Date Indications Data Source(s) OFFICE OUTPATIENT VISIT 15 MINUTES 04/14/2021 12:00:00 AM EDT MEDENT ([facility]) INJECTION 1 TENDON SHEATH/LIGAMENT APONEUROSIS 021 12:00:00 AM EST MEDENT ([facility]) RADEX WRIST COMPLETE MINIMUM 3 VIEWS 04/21/2020 12:00: 00 AM EST MEDENT ([facility]) Results ID Date Data Source [id number] 07/31/2020 12:00:00 AM EST [facility] Leanne SIMMONS Patient Name: AL CUTLERA[address] [facility] Date of : 1960[facility] [place] [address] Date of Exam: [facility]#: Fax: [phone] EXAM: MAMMO SCREENING WITH CADCLINICAL INFORMATION: Screening.Digital screening (2D) mammography was performed bilaterally in the CC andMLO projections. Additionally, breast tomosynthesis (3D mammography) wasperformed bilaterally in the CC and MLO projections.Comparison 07/12/2019, 04/30/2018.She has no current complaint or personal history of breast cancer. Familyhistory of a sibling at 45, two maternal aunts, one at 76 the other at 51and her mother at 78 with breast cancer. She reports has previously testedpositive on genetic screening in 2017.The Volpara volumetric breast density category is B, there are scatteredareas of fibroglandular density.FINDINGS:There is a moderate amount of residual fibroglandular tissue remainingwhich may reduce the sensitivity of mammography. Scattered lymph nodes areseen in the axilla. No dominant masses, suspicious cluster ofmicrocalcifications or secondary signs of malignancy are seen. Pattern offibroglandular densities in the breast parenchyma is grossly unchanged andno area more suspicious than any other.The 3D tomosynthesis images show no additional findings.IMPRESSION:BI-RADS Category 2 - Benign Finding(s). Stable mammogram. There is noevidence of malignant alteration of the breasts. Followup examinationrecommended in one year.This mammogram was read with the assistance of Kamryn FELTON, an FDAapproved computer aided detection system for mammography.Negative x-ray reports should not delay surgical consultation if a dominantor clinically suspicious mass is present.Not all breast cancers can be identified by mammography. Therefore, werecommend that you continue to perform regular breast self-examination andphysical examination and then promptly contact your physician of anyconcerns or changes.Adenosis and dense breasts may obscure an underlying neoplasm.The patient states that a clinical breast examination was over a year ago.Based on the personal health history and familial cancer history yourpatient supplied at the time of imaging, her lifetime risk of breast cancerestimated by the Tyrer-Cuzick model is 44.3%. However, due to the unknowngene mutation status, there are limitations to the accuracy of this riskestimate. Similarly, if anything changes in the personal and/or familyhistory this percentage could increase or decrease. Currently, [facility] and [place] [employer] Society recommendadjunctive breast MRI screening starting at age 30 for women with a> 20-25% lifetime risk of developing breast cancer.ADONAY Serrano/Corinne you for referring CLARA CUTLER to our office. Electronically Signed - WILFREDO TRIPLETT MD 07/31/20 14:58 Name Value Range Interpretation Code Description Data Palak rce(s) Supporting Document(s) ID Date Data Source LIPID PANEL (CARDIAC RISK) 06/02/2020 12:00:00 AM EST [facility] Name Value Range Interpretation Code Description Data Palak rce(s) Supporting Document(s) Cholesterol [Moles/volume] in Serum or Plasma 188 <200 CHOLESTEROL LEVEL eCW1 ([facility]) Triglyceride [Mass/volume] in Serum or Plasma by calculation 141 <150 TRIGLYCERIDES LEVEL eCW1 ([facility]) 141 NON-HDL-C eCW1 ([facility]) Cholesterol in HDL [Moles/volume] in Serum or Plasma 47 >40 HDL CHOLESTEROL eCW1 ([facility]) 4.000 <5 CHOLESTEROL RISK RATIO eCW1 ([facility]) Cholesterol in LDL [Mass/volume] in Serum or Plasma by calculation 113 <100 LDL CHOLESTEROL eCW1 [facility]) ID Date Data Source Comprehensive Metabolic Profile (CMP) 06/02/2020 12:00:00 AM EST eCW1 [facility]) Name Value Range Interpretation Code Description Data Palak rce(s) Supporting Document(s) 19 7-18 BLOOD UREA NITROGEN eCW1 ([facility]) 83 70-100 GLUCOSE, FASTING eCW1 ([facility]) 139 136-145 SODIUM LEVEL eCW1 ([facility]) > 60.0 >45 GLOMERULAR FILTRATION RATE eCW 1 ([facility]) 0.92 0.55-1.30 CREATININE FOR GFR eCW1 ([facility]) 4.2 3.5-5.1 POTASSIUM SERUM eCW1 ([facility]) 8.6 8.8-10.2 CALCIUM LEVEL eCW1 ([facility]) 106 98-107 CHLORIDE LEVEL eCW1 ([facility]) 10 7-37 AST/SGOT eCW1 ([facility]) 30 21-32 CARBON DIOXIDE LEVEL eCW1 ([facility]) 0.3 0.2-1.0 BILIRUBIN,TOTAL eCW1 ([facility]) 25 12-78 ALT/SGPT eCW1 ([facility]) 7.4 6.4-8.2 TOTAL PROTEIN eCW1 [facility]) 132 45-117 ALKALINE PHOSPHATASE eCW1 ([facility]) 4.1 3.2-5.2 ALBUMIN eCW1 ([facility]) 1.2 1.2-2.2 ALBUMIN/GLOBULIN RATIO eCW1 ([facility]) ID Date Data Source CBC - Complete Blood Count 06/02/2020 12:00:00 AM EST eCW[facility] Name Value Range Interpretation Code Description Data Palak rce(s) Supporting Document(s) 7.3 4.0-10.0 WHITE BLOOD COUNT eCW1 ([facility]) 14.3 12.0-15.5 HEMOGLOBIN eCW1 ([facility]) 4.69 4.00-5.40 RED BLOOD COUNT eCW1 ([facility]) 32.8 32.0-36.5 MEAN CORPUSCULAR HGB CONC eCW[facility] ([facility]) 30.5 27.0-33.0 MEAN CORPUSCULAR HEMOGLOB IN eCW1 ([facility]) 93.0 80.0-96.0 MEAN CORPUSCULAR VOLUME e CW1 ([facility]) 43.6 36.0-47.0 HEMATOCRIT eCW1 ([facility]) 12.6 11.5-14.5 RED CELL DISTRIBUTION WID TH eCW1 ([facility]) 172 150-450 PLATELET COUNT, AUTOMATED eCW1 ([facility]) Procedure Social History Code Duration Value Status Description Data Source(s ) Smoking 06/02/2020 12:00:00 AM EST Current Smoker completed Curre nt Smoker eCW1 ([facility]) Smoking 06/02/2020 12:00:00 AM EST Current Smoker completed Curre nt Smoker eCW1 ([facility]) Smoking 06/02/2020 12:00:00 AM EST Current Smoker completed Curre nt Smoker eCW1 ([facility]) Vital Signs ID Date Data Source UNK Name Value Range Interpretation Code Description Data Source(s) Systolic blood pressure 128 mm[Hg] 128 mm[Hg] M EDBARRINGTON ([facility], ) Diastolic blood pressure 76 mm[Hg] 76 mm[Hg] [facility] Heart rate 68 /min 68 /min [facility] [place] body weight 120 [lb_av] 120 [lb_av] MEDEN T ([facility], ) Body weight 66.226 kg 66.226 kg [facility] ([facility]) Body surface area Derived from formula 1.71 m2 1.71 m2 [facility] ([facility]) Oxygen saturation in Arterial blood by Pulse oximetry 97 % 97 % [facility] ([facility], ) Body height 64 [in_i] 64 [in_i] [facility] 5'4" Body weight 146.00 [lb_av] 146.00 [lb_av] MEDEN T ([facility], ) Body mass index (BMI) [Ratio] 25.1 kg/m2 25.1 k g/m2 MEDENT ([facility], ) Body temperature 96.4 [degF] 96.4 [degF] MEDENT ([facility] ) Body weight 141 [lb_av] 141 [lb_av] eCW1 ([facility]) Body height 63 [in_i] 63 [in_i] eCW1 [facility] Body mass index (BMI) [Ratio] 24.97 kg/m2 24.97 kg/m2 eCW1 ([facility]) Heart rate 78 /min 78 /min eCW1 ([facility]) Body temperature 98.7 [degF] 98.7 [degF] eCW1 ( [facility] Systolic blood pressure 130 mm[Hg] 130 mm[Hg] e CW1 ([facility]) Diastolic blood pressure 70 mm[Hg] 70 mm[Hg] eCW1 ([facility]) Respiratory rate 20 /min 20 /min eCW1 ([facility]) Body temperature 97.5 [degF] 97.5 [degF] MEDENT ([facility]) Body height 63 [in_i] 63 [in_i] MEDENT ([facility]) 5'3" Body weight 141.50 [lb_av] 141.50 [lb_av] MEDEN T ([facility]) Body mass index (BMI) [Ratio] 25.1 kg/m2 25.1 k g/m2 MEDENT ([facility]) Diastolic blood pressure 82 mm[Hg] 82 mm[Hg] MEDENT ([facility], ) Heart rate 102 /min 102 /min MEDENT ([facility], ) Body height 64 [in_i] 64 [in_i] MEDENT ([facility], ) 5'4" Systolic blood pressure 130 mm[Hg] 130 mm[Hg] M EDENT ([facility], ) Oxygen saturation in Arterial blood by Pulse oximetry 98 % 98 % [facility] Room Air Body weight 143.00 [lb_av] 143.00 [lb_av] [facility] ([facility]) Body mass index (BMI) [Ratio] 24.5 kg/m2 24.5 k g/m2 [facility] ([facility]) [place] body weight 120 [lb_av] 120 [lb_av] [facility] ([facility]) Body weight 64.865 kg 64.865 kg [facility] ([facility]) Body surface area Derived from formula 1.70 m2 1.70 m2 [facility] ([facility])
[2021-04-23] MEDS ORDERED: LIDOCAINE 2% 100MG/5ML SDV (FOR ANES.) As Ordered ONE (12:43)
[2021-04-23] MEDS ORDERED: propofoL 200 MG/20 ML VIAL As Ordered ONE ×2 (12:43→14:20)
[2021-04-23] MEDS ORDERED: fentaNYL 100 MCG/2 ML INJECTION (J3010) As Ordered ONE (13:16)
--- NOTE | 2021-04-23 14:13 | ROOR ---
Patient Name: Clara Cutler Procedure Date: 04/23/2021 1:59 PM Date of : 1960 Age: 61 Room: [facility] Gender: Female Note Status: Finalized Procedure: Upper Endoscopy + Biopsies Indications: Heartburn, Exclusion of Santana's esophagus Providers: Mayo Bolton MD Referring MD: Leanne Zamora Requesting Provider: Medicines: Monitored Anesthesia Care Complications: No immediate complications. Procedure: Pre-Anesthesia Assessment: - The heart rate, respiratory rate, oxygen saturations, blood pressure, adequacy of pulmonary ventilation, and response to care were monitored throughout the procedure. The Endoscope was introduced through the mouth, and advanced to the second part of duodenum. The upper GI endoscopy was accomplished without difficulty. The patient tolerated the procedure well. Findings: The Z-line was regular and was found 40 cm from the incisors. Multiple biopsies were obtained with cold forceps for evaluation to rule out Santana's Esophagus randomly at the gastroesophageal junction. A small hiatal hernia was present. No other significant abnormalities were identified in a careful examination of the stomach. Biopsies were taken with a cold forceps in the gastric antrum for Helicobacter pylori testing. The exam of the duodenum was otherwise normal. Impression: - Z-line regular, 40 cm from the incisors. - Small hiatal hernia. - Multiple biopsies were obtained at the gastroesophageal junction. - Biopsies were taken with a cold forceps for Helicobacter pylori testing. - The examination was otherwise normal. Recommendation: - Patient has a contact number available for emergencies. The signs and symptoms of potential delayed complications were discussed with the patient. Return to normal activities tomorrow. Written discharge instructions were provided to the patient. - Resume previous diet. - Discharge patient to home. - Follow an antireflux regimen. - Continue present medications. - Await pathology results. - Telephone GI clinic for pathology results in 1 week. - Return to referring physician. - Repeat upper endoscopy for surveillance based on pathology results. - The findings and recommendations were discussed with the patient. Procedure Code(s): --- Professional --- 94611, Esophagogastroduodenoscopy, flexible, transoral; with biopsy, single or multiple Diagnosis Code(s): --- Professional --- K44.9, Diaphragmatic hernia without obstruction or gangrene R12, Heartburn CPT copyright 2019 [employer]. All rights reserved. The codes documented in this report are preliminary and upon production control coordinator review may be revised to meet current compliance requirements. Mayo Bolton MD Mayo Bolton MD 04/23/2021 2:13:08 PM Electronically signed by Mayo Bolton MD Number of Addenda: 0 Note Initiated On: 04/23/2021 1:59 PM Estimated Blood Loss: Estimated blood loss: none.
--- NOTE | 2021-04-23 14:40 | ROOR ---
Patient Name: Clara Cutler Procedure Date: 04/23/2021 2:00 PM Date of : 1960 Age: 61 Room: [facility] Gender: Female Note Status: Finalized Procedure: Total Colonoscopy to Cecum + Cold Snare Polypectomy + Hemoclip Indications: High risk colon cancer surveillance: Personal history of colonic polyps, Last colonoscopy: 2015 Providers: Mayo Bolton MD Referring MD: Leanne Zamora Requesting Provider: Medicines: Monitored Anesthesia Care Complications: No immediate complications. Procedure: Pre-Anesthesia Assessment: - The heart rate, respiratory rate, oxygen saturations, blood pressure, adequacy of pulmonary ventilation, and response to care were monitored throughout the procedure. The Colonoscope was introduced through the anus and advanced to the cecum, identified by appendiceal orifice and ileocecal valve. The colonoscopy was performed without difficulty. The patient tolerated the procedure well. The quality of the bowel preparation was good. Findings: The perianal and digital rectal examinations were normal. Non-bleeding internal hemorrhoids were found during retroflexion. The hemorrhoids were small and Grade I (internal hemorrhoids that do not prolapse). Multiple sessile polyps were found in the hepatic flexure. The polyps were diminutive in size. These polyps were removed with a cold snare. Resection and retrieval were complete. A small polyp was found in the ileocecal valve. The polyp was sessile. The polyp was removed with a cold snare. Resection and retrieval were complete. To prevent bleeding after the polypectomy, one hemostatic clip was successfully placed. There was no bleeding at the end of the procedure. Two small patchy angioectasias without bleeding were found in the cecum. The exam was otherwise without abnormality on direct and retroflexion views. Impression: - Non-bleeding internal hemorrhoids. - Multiple diminutive polyps at the hepatic flexure, removed with a cold snare. Resected and retrieved. - One small polyp at the ileocecal valve, removed with a cold snare. Resected and retrieved. Clip was placed. - Two non-bleeding colonic angioectasias. - The examination was otherwise normal on direct and retroflexion views. - The exam was otherwise normal to the cecum. Recommendation: - Patient has a contact number available for emergencies. The signs and symptoms of potential delayed complications were discussed with the patient. Return to normal activities tomorrow. Written discharge instructions were provided to the patient. - High fiber diet. - Discharge patient to home. - Continue present medications. - Await pathology results. - Repeat colonoscopy in 5 years for surveillance based on pathology results. - Return to referring physician. - The findings and recommendations were discussed with the patient. Procedure Code(s): --- Professional --- 42000, Colonoscopy, flexible; with removal of tumor(s), polyp(s), or other lesion(s) by snare technique Diagnosis Code(s): --- Professional --- K63.5, Polyp of colon Z86.010, Personal history of colonic polyps K64.0, First degree hemorrhoids K55.20, Angiodysplasia of colon without hemorrhage CPT copyright 2019 [employer]. All rights reserved. The codes documented in this report are preliminary and upon cognos report developer review may be revised to meet current compliance requirements. Mayo Bolton MD Mayo Bolton MD 04/23/2021 2:39:43 PM Electronically signed by Mayo Bolton MD Number of Addenda: 0 Note Initiated On: 04/23/2021 2:00 PM Estimated Blood Loss: Estimated blood loss: none.
[2021-04-23 15:01] VITALS: BP 132/60
== END 2021-04-23 15:09 | disposition home or self-care (01) ==
LOC: M OPP 12:11
PROVIDERS: ATTEND Internal Medicine Gastroenterology
DX: K44.9 Diaphragmatic hernia without obstruction or gangrene (principal); R12 Heartburn; D12.6 Benign neoplasm of colon, unspecified; K55.20 Angiodysplasia of colon without hemorrhage; K64.0 First degree hemorrhoids; R94.31 Abnormal electrocardiogram [ECG] [EKG]; F32.A Depression, unspecified; Z88.0 Allergy status to penicillin; Z79.899 Other long term (current) drug therapy; Z86.010 Personal history of colon polyps
CPT/HCPCS: 43239; 45385; 88305; J3010

== ENCOUNTER → 2021-07-05 | Outpatient (CLI) | payer OTHER ==
[~2021-07-05] MED LIST changes: -NS 1,000 ML IV ONE
== END ==
LOC: M WHC 14:47
PROVIDERS: ATTEND Physician Assistant Medical
DX: Z12.31 Encounter for screening mammogram for malignant neoplasm of breast (principal); Z53.9 Procedure and treatment not carried out, unspecified reason

== ENCOUNTER → 2021-08-25 | Outpatient (CLI) | payer OTHER ==
[2021-08-25 13:45] LABS: BASO # 0.1 10^3/uL (0.0-0.2); BASO % 0.5 % (0.0-1.0); EOS # 0.1 10^3/uL (0.0-0.5); EOS % 0.6 % (0.0-3.0); HEMOGLOBIN 14.4 g/dl (12.0-15.5); LYMPH # 2.7 10^3/uL (1.5-5.0); LYMPH % 21.2 % (24.0-44.0); MEAN CORPUSCULAR HEMOGLOBIN 30.4 pg (27.0-33.0); MEAN CORPUSCULAR HGB CONC 33.5 g/dl (32.0-36.5); MEAN CORPUSCULAR VOLUME 90.9 fl (80.0-96.0); MONO # 0.6 10^3/uL (0.0-0.8); MONO % 4.9 % (2.0-8.0); NEUTROPHILS # 9.1 10^3/uL (1.5-8.5); NEUTROPHILS % 72.4 % (36.0-66.0); PLATELET COUNT, AUTOMATED 175 10^3/uL (150-450); RED BLOOD COUNT 4.73 10^6/uL (4.00-5.40); WHITE BLOOD COUNT 12.6 10^3/uL (4.0-10.0)
[2021-08-25 14:04] LABS: ALT/SGPT 24 U/L (12-78); BILIRUBIN,TOTAL 0.3 MG/DL (0.2-1.0); BLOOD UREA NITROGEN 10 MG/DL (7-18); CALCIUM LEVEL 9.1 MG/DL (8.8-10.2); CARBON DIOXIDE LEVEL 30 MEQ/L (21-32); CHLORIDE LEVEL 105 MEQ/L (98-107); CHOLESTEROL LEVEL 180 MG/DL (<200); CREATININE FOR GFR 0.94 MG/DL (0.55-1.30); GLOMERULAR FILTRATION RATE > 60.0 (>45); GLUCOSE, FASTING 93 MG/DL (70-100); HDL CHOLESTEROL 50 MG/DL (>40); LDL CHOLESTEROL 108 MG/DL (<100); NON-HDL-C 130 MG/DL; SODIUM LEVEL 138 MEQ/L (136-145); TOTAL 25(OH) VITAMIN D 37.2 NG/ML (30.0-100.0); TRIGLYCERIDES LEVEL 108 MG/DL (<150); VITAMIN B12 LEVEL 721 PG/ML (247-911)
== END ==
LOC: M PLALAB 10:26
PROVIDERS: ATTEND Physician Assistant Medical
DX: F32.9 Major depressive disorder, single episode, unspecified (principal); E78.2 Mixed hyperlipidemia; F17.210 Nicotine dependence, cigarettes, uncomplicated

== ENCOUNTER → 2021-10-08 | Outpatient (CLI) | payer OTHER | LOC: M WHC 07:21 | PROVIDERS: ATTEND Physician Assistant Medical | DX: M81.0 Age-related osteoporosis without current pathological fracture (principal); M85.89 Other specified disorders of bone density and structure, multiple sites ==

== ENCOUNTER → 2021-12-22 | Outpatient (CLI) | payer OTHER ==
[2021-12-22 15:42] LABS: BASO % 0.6 % (0.0-1.0); EOS % 0.6 % (0.0-3.0); HEMOGLOBIN 14.5 g/dl (12.0-15.5); LYMPH # 1.8 10^3/uL (1.5-5.0); MEAN CORPUSCULAR HEMOGLOBIN 30.5 pg (27.0-33.0); MEAN CORPUSCULAR VOLUME 92.6 fl (80.0-96.0); MONO # 0.5 10^3/uL (0.0-0.8); MONO % 7.6 % (2.0-8.0); NEUTROPHILS # 4.3 10^3/uL (1.5-8.5); NEUTROPHILS % 63.9 % (36.0-66.0); PLATELET COUNT, AUTOMATED 163 10^3/uL (150-450); RED BLOOD COUNT 4.75 10^6/uL (4.00-5.40); WHITE BLOOD COUNT 6.7 10^3/uL (4.0-10.0)
[2021-12-22 18:05] LABS: ALBUMIN 3.9 GM/DL (3.2-5.2); ALT/SGPT 51 U/L (12-78); BILIRUBIN,TOTAL 0.3 MG/DL (0.2-1.0); BLOOD UREA NITROGEN 11 MG/DL (7-18); C REACTIVE PROTEIN QUANTITATIV 0.87 MG/DL (0.00-0.30); CALCIUM LEVEL 9.3 MG/DL (8.8-10.2); CARBON DIOXIDE LEVEL 29 MEQ/L (21-32); CHLORIDE LEVEL 108 MEQ/L (98-107); CREATININE FOR GFR 0.86 MG/DL (0.55-1.30); GLOMERULAR FILTRATION RATE > 60.0 (>45); GLUCOSE, FASTING 89 MG/DL (70-100); POTASSIUM SERUM 4.2 MEQ/L (3.5-5.1); SODIUM LEVEL 142 MEQ/L (136-145); TOTAL PROTEIN 7.1 GM/DL (6.4-8.2)
== END ==
LOC: M RAD 14:30
PROVIDERS: ATTEND Internal Medicine Gastroenterology
DX: M79.621 Pain in right upper arm (principal)

== ENCOUNTER → 2022-04-15 | Outpatient (CLI) | payer OTHER | LOC: M RAD 07:18 | PROVIDERS: ATTEND Internal Medicine Pulmonary Disease | DX: Z12.2 Encounter for screening for malignant neoplasm of respiratory organs (principal); F17.210 Nicotine dependence, cigarettes, uncomplicated; R91.8 Other nonspecific abnormal finding of lung field ==

== ENCOUNTER → 2022-08-04 | Outpatient (CLI) | payer OTHER | LOC: M WHC 08:46 | PROVIDERS: ATTEND Physician Assistant Medical | DX: Z12.31 Encounter for screening mammogram for malignant neoplasm of breast (principal) ==

== ENCOUNTER → 2022-08-04 | Outpatient (CLI) | payer OTHER ==
[2022-08-04 13:22] LABS: BASO # 0.1 10^3/uL (0.0-0.2); BASO % 0.6 % (0.0-1.0); EOS # 0.1 10^3/uL (0.0-0.5); EOS % 1.1 % (0.0-3.0); HEMATOCRIT 44.5 % (36.0-47.0); HEMOGLOBIN 14.6 g/dl (12.0-15.5); LYMPH # 3.1 10^3/uL (1.5-5.0); LYMPH % 34.8 % (24.0-44.0); MEAN CORPUSCULAR HEMOGLOBIN 30.5 pg (27.0-33.0); MEAN CORPUSCULAR HGB CONC 32.8 g/dl (32.0-36.5); MEAN CORPUSCULAR VOLUME 92.9 fl (80.0-96.0); MONO # 0.4 10^3/uL (0.0-0.8); NEUTROPHILS # 5.1 10^3/uL (1.5-8.5); NEUTROPHILS % 58.3 % (36.0-66.0); PLATELET COUNT, AUTOMATED 187 10^3/uL (150-450); RED BLOOD COUNT 4.79 10^6/uL (4.00-5.40); WHITE BLOOD COUNT 8.8 10^3/uL (4.0-10.0)
[2022-08-04 13:55] LABS: ALBUMIN 4.2 G/DL (3.2-5.2); ALKALINE PHOSPHATASE 101 U/L (46-116); ALT/SGPT 23 U/L (7.0-40); AST/SGOT 17 U/L (<34); BILIRUBIN,TOTAL 0.5 MG/DL (0.3-1.2); BLOOD UREA NITROGEN 11 MG/DL (9-23); CALCIUM LEVEL 9.6 MG/DL (8.3-10.6); CARBON DIOXIDE LEVEL 28 MMOL/L (20-31); CHLORIDE LEVEL 106 MMOL/L (98-107); CHOLESTEROL LEVEL 183 MG/DL (<200); CHOLESTEROL RISK RATIO 3.43 (<5); CREATININE FOR GFR 0.77 MG/DL (0.55-1.30); FREE T4 1.13 NG/DL (0.89-1.76); GLOMERULAR FILTRATION RATE > 60.0 (>45); GLUCOSE, FASTING 88 MG/DL (74-106); HDL CHOLESTEROL 53.3 MG/DL (>40); LDL CHOLESTEROL 105.5 MG/DL (<100); NON-HDL-C 130 MG/DL; POTASSIUM SERUM 4.3 MMOL/L (3.5-5.1); SODIUM LEVEL 138 MMOL/L (136-145); THYROID STIMULATING HORMONE 1.144 uIU/ML (0.55-4.78); TOTAL 25(OH) VITAMIN D 31.2 NG/ML (20.0-100.0); TOTAL PROTEIN 6.9 G/DL (5.7-8.2); TRIGLYCERIDES LEVEL 121 MG/DL (<150)
== END ==
LOC: M PLALAB 10:55
PROVIDERS: ATTEND Physician Assistant Medical
DX: E55.9 Vitamin D deficiency, unspecified (principal); E78.2 Mixed hyperlipidemia; Z90.09 Acquired absence of other part of head and neck; F17.210 Nicotine dependence, cigarettes, uncomplicated; Z12.11 Encounter for screening for malignant neoplasm of colon

== ENCOUNTER → 2023-02-06 | Outpatient (CLI) | payer OTHER | LOC: M EKG 08:09 | PROVIDERS: ATTEND Orthopaedic Surgery | DX: Z01.818 Encounter for other preprocedural examination (principal) ==

== ENCOUNTER → 2023-02-10 | Outpatient (CLI) | payer OTHER ==
[2023-02-10 11:00] LABS: BASO % 0.5 % (0.0-1.0); EOS # 0.1 10^3/uL (0.0-0.5); EOS % 1.4 % (0.0-3.0); HEMATOCRIT 42.7 % (36.0-47.0); LYMPH # 2.4 10^3/uL (1.5-5.0); MEAN CORPUSCULAR HEMOGLOBIN 30.6 pg (27.0-33.0); MEAN CORPUSCULAR HGB CONC 32.8 g/dl (32.0-36.5); MEAN CORPUSCULAR VOLUME 93.2 fl (80.0-96.0); MONO # 0.7 10^3/uL (0.0-0.8); MONO % 8.9 % (2.0-8.0); NEUTROPHILS # 4.4 10^3/uL (1.5-8.5); NEUTROPHILS % 57.8 % (36.0-66.0); PLATELET COUNT, AUTOMATED 166 10^3/uL (150-450); RED BLOOD COUNT 4.58 10^6/uL (4.00-5.40); WHITE BLOOD COUNT 7.6 10^3/uL (4.0-10.0)
[2023-02-10 11:08] LABS: INR 1.01
[2023-02-10 11:09] LABS: PARTIAL THROMBOPLASTIN TIME 26.5 SECONDS (24.8-34.2)
== END ==
LOC: M PLALAB 08:19
PROVIDERS: ATTEND Physician Assistant Medical
DX: K21.00 Gastro-esophageal reflux disease with esophagitis, without bleeding (principal)

== ENCOUNTER → 2023-02-16 | Outpatient (CLI) | payer OTHER | LOC: M PLALAB 12:33 | PROVIDERS: ATTEND Internal Medicine Cardiovascular Disease | DX: R94.31 Abnormal electrocardiogram [ECG] [EKG] (principal) ==

== ENCOUNTER → 2023-02-22 | Outpatient (CLI) | payer OTHER | LOC: M RAD 10:22 | PROVIDERS: ATTEND Internal Medicine Cardiovascular Disease | DX: I65.23 Occlusion and stenosis of bilateral carotid arteries (principal) ==

== ENCOUNTER → 2023-03-02 | Outpatient (CLI) | payer OTHER | LOC: M PLAIMG 08:39 | PROVIDERS: ATTEND Physician Assistant Medical | DX: M25.552 Pain in left hip (principal); M47.817 Spondylosis without myelopathy or radiculopathy, lumbosacral region ==

== ENCOUNTER → 2023-04-17 | Outpatient (CLI) | payer MEDICARE, OTHER | LOC: M RAD 09:25 | PROVIDERS: ATTEND Internal Medicine Pulmonary Disease | DX: Z12.2 Encounter for screening for malignant neoplasm of respiratory organs (principal); F17.218 Nicotine dependence, cigarettes, with other nicotine-induced disorders; J84.10 Pulmonary fibrosis, unspecified; J43.2 Centrilobular emphysema; I25.10 Atherosclerotic heart disease of native coronary artery without angina pectoris; R91.1 Solitary pulmonary nodule ==

== ENCOUNTER → 2023-07-27 | Outpatient (CLI) | payer MEDICARE, MEDICAID ==
[2023-07-27 15:02] LABS: BASO % 0.5 % (0.0-1.0); EOS # 0.2 10^3/uL (0.0-0.5); HEMATOCRIT 43.5 % (36.0-47.0); HEMOGLOBIN 14.3 g/dl (12.0-15.5); LYMPH # 2.7 10^3/uL (1.5-5.0); MEAN CORPUSCULAR HEMOGLOBIN 30.5 pg (27.0-33.0); MEAN CORPUSCULAR HGB CONC 32.9 g/dl (32.0-36.5); MEAN CORPUSCULAR VOLUME 92.8 fl (80.0-96.0); MONO # 0.4 10^3/uL (0.0-0.8); MONO % 5.7 % (2.0-8.0); NEUTROPHILS # 4.2 10^3/uL (1.5-8.5); NEUTROPHILS % 55.7 % (36.0-66.0); PLATELET COUNT, AUTOMATED 170 10^3/uL (150-450); RED BLOOD COUNT 4.69 10^6/uL (4.00-5.40); WHITE BLOOD COUNT 7.5 10^3/uL (4.0-10.0)
[2023-07-27 15:30] LABS: THYROID STIMULATING HORMONE 1.031 uIU/ML (0.55-4.78); TOTAL 25(OH) VITAMIN D 77.5 NG/ML (20.0-100.0)
[2023-07-27 15:32] LABS: ALBUMIN 4.1 G/DL (3.2-5.2); ALKALINE PHOSPHATASE 111 U/L (46-116); ALT/SGPT 26 U/L (7.0-40); AST/SGOT 18 U/L (<34); BILIRUBIN,TOTAL 0.4 MG/DL (0.3-1.2); BLOOD UREA NITROGEN 12 MG/DL (9-23); CALCIUM LEVEL 8.9 MG/DL (8.3-10.6); CARBON DIOXIDE LEVEL 30 MMOL/L (20-31); CHLORIDE LEVEL 107 MMOL/L (98-107); CHOLESTEROL LEVEL 171 MG/DL (<200); CHOLESTEROL RISK RATIO 3.54 (<5); CPK CREATINE PHOSPHOKINASE 73 U/L (34-145); CREATININE FOR GFR 0.76 MG/DL (0.55-1.30); GLOMERULAR FILTRATION RATE > 60.0 (>45); GLUCOSE, FASTING 88 MG/DL (74-106); HDL CHOLESTEROL 48.2 MG/DL (>40); LDL CHOLESTEROL 91.4 MG/DL (<100); MAGNESIUM LEVEL 2.2 MG/DL (1.8-2.4); NON-HDL-C 122.8 MG/DL; POTASSIUM SERUM 4.5 MMOL/L (3.5-5.1); SODIUM LEVEL 139 MMOL/L (136-145); TOTAL PROTEIN 6.9 G/DL (5.7-8.2); TRIGLYCERIDES LEVEL 157 MG/DL (<150)
[2023-07-27 15:33] LABS: FREE T4 1.19 NG/DL (0.89-1.76)
== END ==
LOC: M PLALAB 09:13
PROVIDERS: ATTEND Physician Assistant Medical
DX: E55.9 Vitamin D deficiency, unspecified (principal); M54.31 Sciatica, right side; E78.2 Mixed hyperlipidemia; K21.00 Gastro-esophageal reflux disease with esophagitis, without bleeding; Z90.09 Acquired absence of other part of head and neck

== ENCOUNTER → 2023-08-07 | Outpatient (CLI) | payer MEDICARE, MEDICAID | LOC: M WHC 07:36 | PROVIDERS: ATTEND Physician Assistant Medical | DX: Z12.31 Encounter for screening mammogram for malignant neoplasm of breast (principal) ==

== ENCOUNTER → 2023-10-03 | Outpatient (CLI) | payer MEDICARE, MEDICAID | LOC: M WHC 07:39 | PROVIDERS: ATTEND Physician Assistant Medical | DX: M81.0 Age-related osteoporosis without current pathological fracture (principal); M85.89 Other specified disorders of bone density and structure, multiple sites ==

== ENCOUNTER → 2023-11-13 | Outpatient (CLI) | payer MEDICARE, MEDICAID | LOC: M RAD 08:02 | PROVIDERS: ATTEND Internal Medicine Pulmonary Disease | DX: R91.8 Other nonspecific abnormal finding of lung field (principal); E05.90 Thyrotoxicosis, unspecified without thyrotoxic crisis or storm; I70.0 Atherosclerosis of aorta; I25.10 Atherosclerotic heart disease of native coronary artery without angina pectoris; K75.3 Granulomatous hepatitis, not elsewhere classified; M47.814 Spondylosis without myelopathy or radiculopathy, thoracic region; M41.9 Scoliosis, unspecified; J43.9 Emphysema, unspecified ==

== ENCOUNTER → 2024-03-07 | Outpatient (CLI) | payer MEDICARE, OTHER ==
[2024-03-07 10:54] LABS: BASO # 0.1 10^3/uL (0.0-0.2); BASO % 0.9 % (0.0-1.0); EOS # 0.4 10^3/uL (0.0-0.5); EOS % 4.9 % (0.0-3.0); HEMATOCRIT 43.9 % (36.0-47.0); HEMOGLOBIN 14.9 g/dl (12.0-15.5); LYMPH # 2.5 10^3/uL (1.5-5.0); LYMPH % 32.3 % (24.0-44.0); MEAN CORPUSCULAR HEMOGLOBIN 31.6 pg (27.0-33.0); MEAN CORPUSCULAR HGB CONC 33.9 g/dl (32.0-36.5); MONO # 0.5 10^3/uL (0.0-0.8); MONO % 6.4 % (2.0-8.0); NEUTROPHILS # 4.3 10^3/uL (1.5-8.5); NEUTROPHILS % 55.2 % (36.0-66.0); PLATELET COUNT, AUTOMATED 156 10^3/uL (150-450); RED BLOOD COUNT 4.72 10^6/uL (4.00-5.40); WHITE BLOOD COUNT 7.8 10^3/uL (4.0-10.0)
[2024-03-07 11:15] LABS: ALKALINE PHOSPHATASE 126 U/L (46-116); ALT/SGPT 22 U/L (7.0-40); AST/SGOT 13 U/L (<34); BILIRUBIN,TOTAL 0.3 MG/DL (0.3-1.2); BLOOD UREA NITROGEN 11 MG/DL (9-23); CALCIUM LEVEL 9.6 MG/DL (8.3-10.6); CARBON DIOXIDE LEVEL 28 MMOL/L (20-31); CHLORIDE LEVEL 110 MMOL/L (98-107); CREATININE FOR GFR 0.84 MG/DL (0.55-1.30); GLOMERULAR FILTRATION RATE > 60.0 (>45); GLUCOSE, FASTING 87 MG/DL (74-106); POTASSIUM SERUM 4.7 MMOL/L (3.5-5.1); SODIUM LEVEL 141 MMOL/L (136-145); TOTAL PROTEIN 7.1 G/DL (5.7-8.2)
== END ==
LOC: M PLALAB 08:54
PROVIDERS: ATTEND Physician Assistant Medical
DX: K21.00 Gastro-esophageal reflux disease with esophagitis, without bleeding (principal); E78.2 Mixed hyperlipidemia

== ENCOUNTER → 2024-08-08 | Outpatient (CLI) | payer MEDICARE | LOC: M WHC 07:03 | PROVIDERS: ATTEND Physician Assistant Medical | DX: Z12.31 Encounter for screening mammogram for malignant neoplasm of breast (principal); R92.323 Mammographic fibroglandular density, bilateral breasts ==

== ENCOUNTER → 2024-09-11 | Outpatient (CLI) | payer MEDICARE ==
[2024-09-11 15:49] LABS: BASO % 0.4 % (0.0-1.0); EOS # 0.1 10^3/uL (0.0-0.5); EOS % 0.9 % (0.0-3.0); HEMATOCRIT 41.3 % (36.0-47.0); HEMOGLOBIN 13.7 g/dl (12.0-15.5); LYMPH # 2.9 10^3/uL (1.5-5.0); LYMPH % 38.4 % (24.0-44.0); MEAN CORPUSCULAR HEMOGLOBIN 30.1 pg (27.0-33.0); MEAN CORPUSCULAR HGB CONC 33.2 g/dl (32.0-36.5); MEAN CORPUSCULAR VOLUME 90.8 fl (80.0-96.0); MONO # 0.5 10^3/uL (0.0-0.8); MONO % 6.3 % (2.0-8.0); NEUTROPHILS % 53.5 % (36.0-66.0); PLATELET COUNT, AUTOMATED 190 10^3/uL (150-450); RED BLOOD COUNT 4.55 10^6/uL (4.00-5.40); WHITE BLOOD COUNT 7.4 10^3/uL (4.0-10.0)
[2024-09-11 16:10] LABS: FREE T4 1.39 NG/DL (0.89-1.76)
[2024-09-11 16:11] LABS: THYROID STIMULATING HORMONE 0.705 uIU/ML (0.55-4.78); TOTAL 25(OH) VITAMIN D 63.2 NG/ML (20.0-100.0)
[2024-09-11 16:14] LABS: ALBUMIN 3.7 G/DL (3.2-5.2); ALKALINE PHOSPHATASE 87 U/L (35-104); ALT/SGPT 19 U/L (7.0-40); AST/SGOT 12 U/L (<34); BILIRUBIN,TOTAL 0.3 MG/DL (0.3-1.2); BLOOD UREA NITROGEN 13 MG/DL (9-23); CARBON DIOXIDE LEVEL 28 MMOL/L (20-31); CHLORIDE LEVEL 108 MMOL/L (98-107); CHOLESTEROL LEVEL 145 MG/DL (<200); CHOLESTEROL RISK RATIO 4.88 (<5); CREATININE FOR GFR 0.74 MG/DL (0.55-1.30); GLOMERULAR FILTRATION RATE > 60.0 (>45); GLUCOSE, FASTING 76 MG/DL (74-106); HDL CHOLESTEROL 29.7 MG/DL (>40); LDL CHOLESTEROL 93.1 MG/DL (<100); NON-HDL-C 115.3 MG/DL; POTASSIUM SERUM 4.2 MMOL/L (3.5-5.1); PTH INTACT 51.5 PG/ML (18.5-88.0); SODIUM LEVEL 141 MMOL/L (136-145); TOTAL PROTEIN 6.9 G/DL (5.7-8.2); TRIGLYCERIDES LEVEL 111 MG/DL (<150)
== END ==
LOC: M PLALAB 13:24
PROVIDERS: ATTEND Physician Assistant Medical
DX: E78.2 Mixed hyperlipidemia (principal); F32.9 Major depressive disorder, single episode, unspecified; E55.9 Vitamin D deficiency, unspecified; M81.0 Age-related osteoporosis without current pathological fracture; K21.00 Gastro-esophageal reflux disease with esophagitis, without bleeding

== ENCOUNTER → 2024-12-19 | Outpatient (CLI) | payer MEDICARE | LOC: M RAD 07:52 | PROVIDERS: ATTEND Physician Assistant Medical | DX: F17.218 Nicotine dependence, cigarettes, with other nicotine-induced disorders (principal); R91.8 Other nonspecific abnormal finding of lung field; R59.0 Localized enlarged lymph nodes ==

== ENCOUNTER → 2025-03-03 | Outpatient (CLI) | payer MEDICAID, MEDICARE ==
[2025-03-03 17:35] LABS: BASO # 0.0 10^3/uL (0.0-0.2); BASO % 0.5 % (0.0-1.0); EOS # 0.1 10^3/uL (0.0-0.5); EOS % 1.6 % (0.0-3.0); LYMPH # 2.7 10^3/uL (1.5-5.0); LYMPH % 35.5 % (24.0-44.0); MONO # 0.4 10^3/uL (0.0-0.8); MONO % 5.6 % (2.0-8.0); NEUTROPHILS # 4.3 10^3/uL (1.5-8.5); NEUTROPHILS % 56.5 % (36.0-66.0); PLATELET COUNT, AUTOMATED 161 10^3/uL (150-450)
[2025-03-03 18:08] LABS: ALT/SGPT 21.0 U/L (7.0-40); AST/SGOT 17.0 U/L (<34); CALCIUM LEVEL 9.1 MG/DL (8.3-10.6); CARBON DIOXIDE LEVEL 27.0 MMOL/L (20-31); CHLORIDE LEVEL 105.0 MMOL/L (98-107); CHOLESTEROL LEVEL 192.0 MG/DL (<200); CHOLESTEROL RISK RATIO 4.06 (<5); CREATININE FOR GFR 0.84 MG/DL (0.55-1.30); GLOMERULAR FILTRATION RATE 76.6 (>45); LDL CHOLESTEROL 112.0 MG/DL (<100); NON-HDL-C 144.8 MG/DL; POTASSIUM SERUM 3.8 MMOL/L (3.5-5.1); SODIUM LEVEL 138.0 MMOL/L (136-145); TRIGLYCERIDES LEVEL 164.0 MG/DL (<150)
[2025-03-03 18:09] LABS: PTH INTACT 36.1 PG/ML (18.5-88.0)
[2025-03-03 18:10] LABS: TOTAL 25(OH) VITAMIN D 44.0 NG/ML (20.0-100.0)
== END ==
LOC: M PLALAB 15:09
PROVIDERS: ATTEND Physician Assistant Medical
DX: E78.2 Mixed hyperlipidemia (principal); E55.9 Vitamin D deficiency, unspecified; K21.00 Gastro-esophageal reflux disease with esophagitis, without bleeding; M25.552 Pain in left hip; F32.9 Major depressive disorder, single episode, unspecified

== ENCOUNTER 2025-04-30 11:27 | Day surgery (SDC) | payer MEDICAID, MEDICARE ==
[~2025-04-30] VITALS: Ht 160 cm; Wt 61.6 kg
[~2025-04-30 11:27] MED LIST changes: +MORI500C PO; +NORV5TAB PO; +VALS40TA9 PO
[2025-04-30] MEDS ORDERED: LIDOCAINE 2% 100 MG/5 ML SDV (FOR ANES.) As Ordered ONE (12:11)
[2025-04-30 12:56] VITALS: TEMP 96.8
[2025-04-30 13:17] VITALS: BP 133/61; O2SAT 99
== END 2025-04-30 13:22 | disposition home or self-care (01) ==
LOC: M OPP 11:27
PROVIDERS: ATTEND Internal Medicine Gastroenterology
DX: K63.5 Polyp of colon (principal); K64.0 First degree hemorrhoids; K57.30 Diverticulosis of large intestine without perforation or abscess without bleeding; Z86.0100 Personal history of colon polyps, unspecified; K31.89 Other diseases of stomach and duodenum; R12 Heartburn